=== PATIENT | female | born 1950 | race Caucasian/White ===

== ENCOUNTER 2021-03-23 10:50 | Outpatient (CLI) | payer OTHER, SELFPAY ==
[2021-03-23 11:54] LABS: Alanine Aminotransferase 15 U/L (4-35); Albumin Level 4.1 g/dL (3.5-5.1); Alkaline Phosphatase 61 U/L (38-126); Anion Gap 5 mmol/L (8-16); Aspartate Amino Transferase 23 U/L (14-36); Bilirubin,Total 0.4 mg/dL (0.2-1.3); Blood Urea Nitrogen 14 mg/dL (7-17); Carbon Dioxide 26 mmol/L (22-30); Chloride 105 mmol/L (98-107); Cholesterol 135 mg/dL (0-200); Estimated Glomerular Filt Rate > 60; Glucose 103 mg/dL (65-110); HDL Direct 42 mg/dL; Potassium 4.2 mmol/L (3.4-5.0); Sodium 136 mmol/L (137-145); Triglycerides 146 mg/dL (<150)
[2021-03-23 12:05] LABS: LDL Cholesterol Direct 60 mg/dL
== END 2021-03-23 10:51 | disposition home or self-care (01) ==
LOC: ANHLAB 10:52
PROVIDERS: PCP Family Medicine; Visit Provider Internal Medicine Cardiovascular Disease
DX: E78.5 Hyperlipidemia, unspecified (principal)
CPT/HCPCS: 36415; 80053; 80061

== ENCOUNTER 2021-10-26 12:58 | Outpatient (CLI) | payer OTHER, SELFPAY ==
--- NOTE | 2021-10-26 13:04 | ECHO_ITS ---
Patient Info Name: Yulissa Arellano Age: 71 years : 1950 Gender: Female Ht: 65 in Wt: 204 lbs BSA: 2.10 m2 HR: 72 bpm BP: 143 / 70 mmHg Technical Quality: Fair Exam Date: 10/26/2021 1:32 PM Exam Location[facility] Patient Status: Outpatient Admit Date: 10/26/2021 Staff Ordering Physician: Kaushik Ramirez DO Chief Ophthalmic Technician: Kaitlynn Chase RDCS Attending Provider: Kaushik Ramirez DO Referring Physician: James SALINAS; Exam Type: CA echo doppler color flow Study Info Indications Z95.3 - PRESENCE OF XEOGENIC HEART VALVE Complete two-dimensional, color flow and Doppler transthoracic echocardiogram is performed. Summary 1. Complete two-dimensional, color flow and Doppler transthoracic echocardiogram is performed. 2. Left ventricular chamber dimension is normal. 3. Left ventricular systolic function is normal, estimated at 65-70%. 4. There is mildly increased left ventricular wall thickness. 5. The left ventricular diastolic function is grade I diastolic dysfunction. 6. E/e' 12 is mildly elevated. 7. Global longitudinal strain is abnormal at -11.7%. 8. Right ventricular systolic function is reduced based on abnormal TAPSE 1.5 cm. 9. Linear artifact in right ventricle suggestive of catheter(s), pacemaker lead(s), or ICD lead(s). 10. Left atrial chamber dimension is mildly enlarged. 11. Linear artifact in the right atrium suggestive of catheter(s), pacemaker lead(s), or ICD lead(s). 12. The bioprosthetic aortic valve is not well visualized. 13. The mitral valve has mildly calcified annulus. 14. There is trace mitral valve regurgitation. 15. There is mild tricuspid valve regurgitation. 16. No pulmonary hypertension, estimated pulmonary arterial systolic pressure is 25 mmHg. 17. There is trace pulmonic regurgitation. Left Ventricle E/e' 12 is mildly elevated. Global longitudinal strain is abnormal at -11.7%. Left ventricular chamber dimension is normal. Left ventricular systolic function is normal, estimated at 65-70%. There is mildly increased left ventricular wall thickness. The left ventricular diastolic function is grade I diastolic dysfunction. Right Ventricle Right ventricular systolic function is reduced based on abnormal TAPSE 1.5 cm. Linear artifact in right ventricle suggestive of catheter(s), pacemaker lead(s), or ICD lead(s). Right ventricular chamber dimension is not well visualized. Left Atria Left atrial chamber dimension is mildly enlarged. Right Atria Linear artifact in the right atrium suggestive of catheter(s), pacemaker lead(s), or ICD lead(s). Right atrial chamber dimension is normal. Aortic Valve The bioprosthetic aortic valve is not well visualized. There is no bioprosthetic aortic valve stenosis. There is no regurgitation of the bioprosthetic aortic valve. Pulmonic Valve There is trace pulmonic regurgitation. Mitral Valve The mitral valve has mildly calcified annulus. There is no mitral valve stenosis. There is trace mitral valve regurgitation. Tricuspid Valve There is mild tricuspid valve regurgitation. No pulmonary hypertension, estimated pulmonary arterial systolic pressure is 25 mmHg. Pericardium/Pleural There is no pericardial effusion. Inferior Vena Cava Normal inferior vena cava with >50% collapse upon inspiration consistent with normal right atrial pressure, 5 mmHg. Aorta The aortic root size at the sinus of Valsalva is normal. Left Ventricular Outflow Tract
== END 2021-10-26 12:59 | disposition home or self-care (01) ==
LOC: ANHCARD 13:03
PROVIDERS: Visit Provider Internal Medicine Cardiovascular Disease
DX: Z95.3 Presence of xenogenic heart valve (principal); I36.1 Nonrheumatic tricuspid (valve) insufficiency
CPT/HCPCS: 93306

== ENCOUNTER 2022-08-17 01:23 | Day surgery (SDC) | payer MEDICARE, SELFPAY ==
[2022-08-04 14:04] VITALS: BMI 32.3
[2022-08-17 08:02] VITALS: BP 169/75; PULSE 70; RESP 20; TEMP 36.2; O2SAT 100
[2022-08-17] MEDS: LACTATED RINGERS 1,000 ML 150 ML IV CONT (08:12)
[2022-08-17] MEDS: GENTAMICIN 80MG/SOD CHL 50 ML 80 MG/50 ML BAG 100 MG IVPB (08:15)
[2022-08-17] MEDS: AMPICILLIN 2 GM/NS 100 ML 2 GM/100 ML BAG IVPB (08:32)
--- NOTE | 2022-08-17 08:41 | PM.HPGS ---
History of Present Illness History of Present Illness Consent: Risks, benefits, and alternatives have been discussed and questions answered. Patient agrees to proceed with procedure. Chief complaint: hx of colon polyps Narrative: Yulissa Arellano is a 72 year old female Presents for colonoscopy. Patient's current weight appetite and bowel movements are normal. Patient denies abdominal pain. She has had no bleeding. Family history noncontributory. Previous colonoscopy 2017 revealed adenomatous colon polyps. Patient presents today for screening colonoscopy. Review of Systems Review of Systems: Review of systems noncontributory. [facility] Past Medical History Medical History CAD (coronary artery disease) CKD (chronic kidney disease) stage 3, GFR 30-59 ml/min Dyslipidemia Essential hypertension Obesity GERDA (obstructive sleep apnea) Pacemaker PAD (peripheral artery disease) Surgical History Surgical History History of aortic valve replacement with bioprosthetic valve Family History Family History Mother Family history of cardiovascular disease Other Asthma Social History Social History Smoking status: Never smoker Alcohol intake: current Alcohol use details: occasionally Substance use: never Substance use type: does not use Living arrangements: alone Spiritual care concerns: No Meds Home Medications and Allergies Home Medications Medication Instructions Recorded Confirmed Type pyridoxine (vitamin B6) 50 mg 50 mg PO DAILY 07/03/19 08/04/22 History capsule rosuvastatin 10 mg tablet (Crestor) 10 mg PO DAILY 07/03/19 08/04/22 History cholecalciferol (vitamin D3) 50 1,000 unit PO DAILY 08/18/20 08/04/22 History mcg (2,000 unit) capsule citalopram 10 mg tablet 10 mg PO DAILY 08/18/20 08/04/22 History levothyroxine 137 mcg capsule 137 mcg PO DAILY 08/18/20 08/17/22 History amlodipine 10 mg tablet 10 mg PO DAILY 09/21/21 08/04/22 History aspirin 81 mg tablet,delayed 81 mg PO DAILY 09/21/21 08/04/22 History release (Adult Low Dose Aspirin) losartan 50 mg tablet See Rx Instructions .Route 11/10/21 08/04/22 Rx .COMPLEX #90 tabs carvedilol 12.5 mg tablet See Rx Instructions .Route 11/11/21 08/17/22 Rx .COMPLEX #180 tabs sodium,potassium,mag sulfates 17.5 See Rx Instructions PO .COMPLEX 07/28/22 08/04/22 Rx gram-3.13 gram-1.6 gram oral soln #354 mL (Suprep Bowel Prep Kit) Allergies Allergy/AdvReac Type Severity Reaction Status Date / Time lisinopril Allergy Unknown Cough Verified 08/17/22 08:01 Vital Signs Vital Signs - 24 hr 08/17/22 08:02 Temperature 97.2 F L Pulse Rate 70 Respiratory Rate 20 Blood Pressure 169/75 H Pulse Oximetry 100 Oxygen Delivery Room Air Exam Narrative: Physical exam reveals patient to be alert. Vital signs stable. HEENT exam is unremarkable. Patient is anicteric. Lungs are clear to auscultation and percussion. Heart is without murmur or extra sounds. Abdomen bowel sounds are present soft nontender with no organomegaly. Digital external rectal exam is normal. Assessment and Plan Assessment and plan (1) History of colon polyps: Code(s): Z86.010 - Personal history of colonic polyps Status: Acute Assessment and Plan: Patient has a history of colon polyps. Plan for surveillance colonoscopy at 5 year intervals. Further recommendations may be given after endoscopy.
--- NOTE | 2022-08-17 08:42 | WPDANESEPPF ---
Anes - Initial Pre Proc Eval Procedure: Operation Date: 08/17/22 09:00 Proposed Procedures p Screening Colonoscopy - Octavio Salvador MD Date/Time: 08/17/22 08:42 Surgeon: Octavio Salvador MD Pre Op Diagnosis: hx of colon polyps Patient Data Age: 72 Gender: F Height: 1.65 m Weight: 88 kg Last Vital Signs Temp 97.2 F L 08/17/22 08:02 Pulse 70 08/17/22 08:02 Resp 20 08/17/22 08:02 BP 169/75 H 08/17/22 08:02 Pulse Ox 100 08/17/22 08:02 O2 Del Method Room Air 08/17/22 08:02 Allergies Allergy/AdvReac Type Severity Reaction Status Date / Time lisinopril Allergy Unknown Cough Verified 08/17/22 08:01 Home Medications Medication Instructions Recorded Confirmed Type pyridoxine (vitamin B6) 50 mg 50 mg PO DAILY 07/03/19 08/04/22 History capsule rosuvastatin 10 mg tablet (Crestor) 10 mg PO DAILY 07/03/19 08/04/22 History cholecalciferol (vitamin D3) 50 1,000 unit PO DAILY 08/18/20 08/04/22 History mcg (2,000 unit) capsule citalopram 10 mg tablet 10 mg PO DAILY 08/18/20 08/04/22 History levothyroxine 137 mcg capsule 137 mcg PO DAILY 08/18/20 08/17/22 History amlodipine 10 mg tablet 10 mg PO DAILY 09/21/21 08/04/22 History aspirin 81 mg tablet,delayed 81 mg PO DAILY 09/21/21 08/04/22 History release (Adult Low Dose Aspirin) losartan 50 mg tablet See Rx Instructions .Route 11/10/21 08/04/22 Rx .COMPLEX #90 tabs carvedilol 12.5 mg tablet See Rx Instructions .Route 11/11/21 08/17/22 Rx .COMPLEX #180 tabs sodium,potassium,mag sulfates 17.5 See Rx Instructions PO .COMPLEX 07/28/22 08/04/22 Rx gram-3.13 gram-1.6 gram oral soln #354 mL (Suprep Bowel Prep Kit) Patient hx anesthesia problems: none Family hx anesthesia problems: none Results Review: All pre-operative results and documents have been reviewed as part of the pre-operative evaluation. [facility] Past Medical History Medical History CAD (coronary artery disease) CKD (chronic kidney disease) stage 3, GFR 30-59 ml/min Dyslipidemia Essential hypertension Obesity GERDA (obstructive sleep apnea) Pacemaker PAD (peripheral artery disease) Surgical History Surgical History History of aortic valve replacement with bioprosthetic valve Family History Family History Mother Family history of cardiovascular disease Other Asthma Social History Social History Smoking status: Never smoker Alcohol intake: current Alcohol use details: occasionally Substance use: never Substance use type: does not use Living arrangements: alone Spiritual care concerns: No Anes - Eval Final PreProcedure Day of Procedure 08/17/22 08:42 Patient weight: obese Heart: regular rate and rhythm Lungs: clear to auscultation Airway: Mallampati scale class III Neurological: alert and oriented Last oral intake: >/= 8 hours ASA classification: III Emergent: no Anesthetic plan: proceed Anesthesia type and monitoring: general GIVS and standard monitoring Results Review: All pre-operative results and documents have been reviewed as part of the pre-operative evaluation. Informed Consent: The patient's anesthetic plan and its attendant risks and benefits were discussed with the patient/family/POA. Questions were solicited and answers provided to the satisfaction of the patient/family/POA.
[2022-08-17 09:08] VITALS: BP 100/48; PULSE 60; RESP 22; O2SAT 100
[2022-08-17 09:18] VITALS: BP 97/52; PULSE 60; RESP 22; O2SAT 96
[2022-08-17 09:28] VITALS: BP 125/70; PULSE 60; RESP 23; O2SAT 96
== END 2022-08-17 09:40 | disposition home or self-care (01) ==
PROVIDERS: Visit Provider Internal Medicine Gastroenterology
PROC: 0DJD8ZZ Inspection of Lower Intestinal Tract, Via Natural or Artificial Opening Endoscopic (ICD-10-PCS; CPT 45378; principal; 2022-08-17 09:00)
DX: Z12.11 Encounter for screening for malignant neoplasm of colon (principal); D12.5 Benign neoplasm of sigmoid colon; K57.30 Diverticulosis of large intestine without perforation or abscess without bleeding; K64.8 Other hemorrhoids; I12.9 Hypertensive chronic kidney disease with stage 1 through stage 4 chronic kidney disease, or unspecified chronic kidney disease; N18.30 Chronic kidney disease, stage 3 unspecified; G47.33 Obstructive sleep apnea (adult) (pediatric); I25.10 Atherosclerotic heart disease of native coronary artery without angina pectoris; I73.9 Peripheral vascular disease, unspecified; E78.5 Hyperlipidemia, unspecified; Z95.0 Presence of cardiac pacemaker; Z79.82 Long term (current) use of aspirin; E66.9 Obesity, unspecified; Z68.32 Body mass index [BMI] 32.0-32.9, adult
CPT/HCPCS: 45385; 88305; J0290; J1580; J2704; J7120

== ENCOUNTER 2022-09-20 10:08 | Outpatient (CLI) | payer MEDICARE, SELFPAY ==
[2022-09-20 11:04] LABS: Alanine Aminotransferase 19 U/L (6-35); Albumin Level 3.9 g/dL (3.5-5.1); Alkaline Phosphatase 71 U/L (38-126); Anion Gap 7 mmol/L (8-16); Aspartate Amino Transferase 23 U/L (14-36); Bilirubin,Total 0.4 mg/dL (0.2-1.3); Blood Urea Nitrogen 23 mg/dL (7-17); Carbon Dioxide 26 mmol/L (22-30); Chloride 107 mmol/L (98-107); Cholesterol 134 mg/dL (0-200); Estimated Glomerular Filt Rate > 60; Glucose 107 mg/dL (65-110); HDL Direct 29 mg/dL; Potassium 3.9 mmol/L (3.4-5.0); Sodium 140 mmol/L (137-145); Triglycerides 213 mg/dL (<150)
[2022-09-20 11:14] LABS: LDL Cholesterol Direct 60 mg/dL
[2022-09-20 11:51] LABS: Thyroid Stimulating Hormone Reflex < 0.015 uIU/mL (0.465-4.68)
[2022-09-20 21:46] LABS: Free T4 Free Thyroxine Reflex 3.02 ng/dL (0.78-2.19)
== END 2022-09-20 10:09 | disposition home or self-care (01) ==
PROVIDERS: Visit Provider Internal Medicine Cardiovascular Disease
DX: E78.5 Hyperlipidemia, unspecified (principal)
CPT/HCPCS: 36415; 80053; 80061; 84439; 84443

== ENCOUNTER 2022-10-22 08:29 | Outpatient (CLI) | payer MEDICARE, SELFPAY ==
--- NOTE | ~2022-10-22 | NM_ITS ---
EXAMINATION: NM aria stress w perfusion DATE: 10/22/2022 10:47 INDICATION: Dyspnea on exertion. TECHNIQUE: Rest images were obtained following intravenous administration of 10.6 mCi Tc99m tetrofosm in (Myoview). The patient was infused intravenously with Lexiscan (regadenoson). Then, 34.11 mCi Tc99 m tetrofosmin (Myoview) was administered intravenously, and stress images were obtained. Data was rec onstructed into short axis and horizontal and vertical long axis SPECT images. Gated SPECT images wer e also obtained. COMPARISON: Myocardial perfusion imaging 11/26/2015 FINDINGS: There is a large, mild, reversible perfusion defect involving mid to basal inferior and inf erolateral ro and mid anterolateral wall, consistent with ischemia. There is no segmental wall mo tion abnormality. Left ventricular ejection fraction measures 69%. IMPRESSION: 1. Large area of mild ischemia involving mid to basal inferior and inferolateral ro and mid violeta lateral wall. 2. Normal left ventricular ejection fraction measuring 69%. Reviewed, dictated and finalized at location A. IMPRESSION: 1. Large area of mild ischemia involving mid to basal inferior and inferolatera l ro and mid anterolateral wall. 2. Normal left ventricular ejection fraction measuring 69%.
--- NOTE | 2022-10-22 09:29 | EST_ITS ---
Patient Info Name: Yulissa Arellano Age: 72 years : 1950 Gender: Female Ht: 65 in Wt: 191 lbs BSA: 2.02 m2 Exam Date: 10/22/2022 9:42 AM Exam Location: [facility] Stress Patient Status: Outpatient Admit Date: 10/22/2022 Staff Ordering Physician: Kaushik Ramirez DO Attending Provider: Kaushik Ramirez DO Exercise Technologist: Kaylee Erickson CT Exercise Physician: Kaushik Ramirez DO Exam Type: CA stress aria w NM Study Info Indications R06.09 - Other forms of dyspnea A regadenoson stress test was performed. Summary 1. 1. Negative lexiscan stress test for ischemic ST changes by ECG criteria. 2. 2. Baseline hypertension. 3. 3. Nuclear scan to follow and will be reported separately. Please correlate with it. 4. 4. Patient informed of the above results. Protocol: Lexiscan Stress ECG Details Stage: REST Duration (min): 0 min : 59 sec HR (bpm): 60 SBP (mmHg): 148 DBP (mmHg): 77 Stage: REST Duration (min): 6 min : 10 sec HR (bpm): 60 SBP (mmHg): 148 DBP (mmHg): 77 Stage: STAGE 1 Duration (min): 0 min : 59 sec HR (bpm): 81 SBP (mmHg): 139 DBP (mmHg): 58 Stage: RECOVERY Duration (min): 1 min : 0 sec HR (bpm): 77 SBP (mmHg): 139 DBP (mmHg): 58 Stage: RECOVERY Duration (min): 2 min : 0 sec HR (bpm): 76 SBP (mmHg): 139 DBP (mmHg): 58 Stage: RECOVERY Duration (min): 3 min : 0 sec HR (bpm): 73 SBP (mmHg): 139 DBP (mmHg): 58 Stage: RECOVERY Duration (min): 3 min : 21 sec HR (bpm): 74 SBP (mmHg): 134 DBP (mmHg): 56 Rest HR: 60 bpm Peak HR: 81 bpm Rest Sys BP: 148 mmHg Peak Sys BP: 139 mmHg Max Pred HR: 146 bpm % Max Pred HR: 55 % Target HR: 124 bpm Max RPP: 11,259 bpm*mmHg Termination Reason: Completed protocol Cardiac Symptoms: Shortness of breath Total Time: 1 min : 0 sec Rest Oliva BP: 77 mmHg Peak Oliva BP: 58 mmHg Total Dose: 0.4 mg Resting ECG Sinus rhythm. Stress ECG No ST changes. Arrhythmias None. Report Signatures
== END 2022-10-22 08:30 | disposition home or self-care (01) ==
PROVIDERS: Visit Provider Internal Medicine Cardiovascular Disease
DX: R06.09 Other forms of dyspnea (principal); Z01.810 Encounter for preprocedural cardiovascular examination
CPT/HCPCS: 78452; 93017; A9502; J2785

== ENCOUNTER 2023-02-03 11:09 | Outpatient (CLI) | payer OTHER, SELFPAY ==
[2023-02-03 11:56] LABS: LDL Cholesterol Direct 78 mg/dL
[2023-02-03 12:35] LABS: Alanine Aminotransferase 15 U/L (6-35); Alkaline Phosphatase 76 U/L (38-126); Anion Gap 7 mmol/L (8-16); Aspartate Amino Transferase 24 U/L (14-36); Bilirubin,Total 0.5 mg/dL (0.2-1.3); Blood Urea Nitrogen 22 mg/dL (7-17); Calcium 8.2 mg/dL (8.4-10.2); Carbon Dioxide 24 mmol/L (22-30); Chloride 109 mmol/L (98-107); Cholesterol 145 mg/dL (0-200); Estimated Glomerular Filt Rate > 60; Glucose 104 mg/dL (65-110); HDL Direct 40 mg/dL; Sodium 140 mmol/L (137-145); Triglycerides 135 mg/dL (<150)
== END 2023-02-03 11:10 | disposition home or self-care (01) ==
PROVIDERS: PCP Family Medicine; Visit Provider Internal Medicine Cardiovascular Disease
DX: E78.5 Hyperlipidemia, unspecified (principal)
CPT/HCPCS: 36415; 80053; 80061

== ENCOUNTER 2024-12-10 14:32 | Outpatient (CLI) | payer MEDICARE, SELFPAY ==
--- OUTSIDE RECORDS SUMMARY | 2024-12-10 14:45 | XMS_ITS | Clinical Summary ---
Author Organization [facility] Address [address] [place] [address] Care Team Providers Care Emt Name Role Phone Lucas Perez MD Unavailable [phone] Kaushik Ramirez DO Unavailable [phone] Kaushik Ramirez DO Unavailable [phone] Aki Warner MD Primary Care Provider Allergies No known active allergies Medications cholecalciferol (VITAMIN D-3) 1,000 unit Take 1 tablet/capsule (1,000 Units total) by mouth daily Active carvediloL (COREG) 12.5 mg tablet 0.5 tablets (6.25 mg total) 0 Active aspirin 81 mg enteric coated tabletIndication s:Essential hypertension,Hyp ercholesterolemi a,Coronary artery disease of [place] artery of [place] heart with stable angina pectoris Take 1 tablet (81 mg total) by mouth daily 90 tablet 3 1 Active clopidogreL (PLAVIX) 75 mg tablet Take 1 tablet (75 mg total) by mouth daily 4 Active cilostazoL (PLETAL) 50 mg tablet Take 2 tablets (100 mg total) by mouth 2 (two) times a day Active rosuvastatin (CRESTOR) 10 mg tabletIndication s:Mixed dyslipidemia Take 1 tablet (10 mg total) by mouth daily 90 tablet 3 4 Active Additional Information Patient not taking.Reported on 11/07/2024 cyanocobalamin (Vitamin B-12) 1,000 mcg tabletIndication s:Vitamin B12 Deficiency Take 1 tablet (1,000 mcg total) by mouth daily 90 tablet 3 4 Active amLODIPine (NORVASC) 10 mg tabletIndication s:Primary hypertension Take 1 tablet (10 mg total) by mouth daily 90 tablet 3 4 04/04/20 25 Active losartan (COZAAR) 100 mg tabletIndication s:Primary hypertension TAKE 1 TABLET BY MOUTH EVERY DAY 90 tablet 1 5 Active Additional Information Patient not taking.Reported on 11/07/2024 levothyroxine (SYNTHROID) 112 mcg tablet TAKE 1 TABLET BY MOUTH IN THE ENVIRONMENTAL SERVICES ASSISTANT BEFORE BREAKFAST 90 tablet 1 5 Active citalopram (CeleXA) 20 mg tabletIndication s: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 A nerve conduction study of the left upper extremity was performed. In this extremity the left median and ulnar motor and sensory nerves and radial sensory nerves were examined. This has followed by EMG examination of the left upper extremity using a concentric needle. The following muscles were sampled left 1st dorsal interosseous abductor pollicis brevis pronator teres flexor digitorum profundus biceps triceps deltoid middle lower cervical paraspinal muscles. Abnormalities on nerve conduction velocity test included the following 1. There was a delay in the left median distal motor latencies at 5.3 milliseconds, a delay in the left median snap latencies at 4.1 milliseconds, a delay in the left median motor nerve conduction velocity at 48 m/sec and a delay in the left median F-wave latencies at 34 m/sec. The left median compound muscle action potential amplitudes were decreased at 1.8 mV at the wrist and 1.9 mV at the elbow. 2. The left ulnar motor nerve conduction velocity across the elbow was decreased slightly at 48 m/sec the left ulnar snap latencies was delayed at 3.9 millisecond. EMG examination showed no evidence of any active or chronic denervation. Polyphasic potentials were seen in the right abductor pollicis brevis muscle. Impression: 1. Abnormal EMG nerve conduction velocity because of 1. 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 carpal tunnel syndrome with chronic neuropathic changes in the left abductor pollicis brevis muscle. 2. Left ulnar neuropathy across the elbow and left ulnar neuropathy at the wrist. No evidence for cervical radiculopathy. Clinical correlation is recommended. Assessment & Plan (09/25/2024 11:50 AM CDT): Chronic left carpal tunnel syndrome with tingling and pain in all fingers, extending up the arm, worse at night. Positive Tinel's and Phalen's tests on the left wrist. Previous right carpal tunnel repair. Unable to see an orthopedic doctor due to availability issues. Nerve conduction study needed to confirm diagnosis and assess severity. Referral to a hand orthopedic surgeon planned for further evaluation and management. - Order nerve conduction study for left arm at [facility] - Refer to hand orthopedic surgeon at [facility] - Advise wearing a wrist brace at night Low vitamin B12 level 01/06/2024 Assessment & Plan (04/02/2024 3:11 PM LATHE SANDER): - Chronic condition, worse - Noted on 01/09 with level 353 - Started B12 500 mcg daily, script sent in on last visit, question compliance - recheck labs, order placed with result as shown below Lab Results Component Value Date VITB12 332 04/02/2024 Lab Results Component Value Date FOLATE 6.5 01/05/2024 Assessment & Plan (01/06/2024 4:49 AM CDT): - new diagnosis - Noted on 01/09 - Start B12 500 mcg daily, script sent in Lab Results Component Value Date VITB12 353 01/05/2024 Lab Results Component Value Date FOLATE 6.5 01/05/2024 TMJ arthralgia 01/05/2024 Overview (09/25/2024): With referred otalgia Assessment & Plan (09/25/2024 10:58 AM CDT): - chronci condition, not at goal.recurring - causing referred left ear pain, referred otalgia - reports even in her 30s she had an injection - recommend establishing with an oral surgeon, referral placed in past but still trying to fine a new oral surgeon Assessment & Plan (04/03/2024 8:56 AM LATHE SANDER): - chronci condition, not at goal - causing referred left ear pain, referred otalgia - reports even in her 30s she had an injection - recommend establishing with an oral surgeon, referral placed in past but still trying to fine a new oral surgeon Assessment & Plan (01/05/2024 9:54 AM CDT): - chronci condition, worse - causing referred left ear pain - reports even in her 30s she had an injection - recommend establishing with an oral surgeon, referral placed Stage 3a chronic kidney disease 06/02/2023 Assessment & Plan (04/03/2024 9:00 AM LATHE SANDER): - chronic condition, worse --> in setting of poorly controlled hypertension - noted on lab work - educated patient about it - avoid NSAIDs, and renally dose medications - recommend good control of hypertension - obtained Renal US - had ordered Urine ACR and protein creatinine, renal function panel, on prior visit that is yet to be done, reminder provided - see plan under hypertension US Renal Complete 02/08 IMPRESSION: 1. Normal renal size with no hydronephrosis. 2. Borderline increased echogenicity right kidney which could be seen with medical renal disease. Lab Results Component Value Date CREATININE 1.30 (H) 04/02/2024 CREATININE 1.19 (H) 01/05/2024 CREATININE 1.04 02/22/2023 CREATININE 0.78 09/09/2021 CREATININE 0.74 05/26/2021 Assessment & Plan (01/06/2024 6:45 AM CDT): - chronic condition, worse - noted on lab work - educated patient about it - avoid NSAIDs, and renally dose medications - recommend good control of hypertension - obtain Renal US, Urine ACR and protein creatinine, renal function panel, orders placed Lab Results Component Value Date CREATININE 1.19 (H) 01/05/2024 CREATININE 1.04 02/22/2023 CREATININE 0.78 09/09/2021 CREATININE 0.74 05/26/2021 CREATININE 1.13 (H) 04/14/2021 Assessment & Plan (06/02/2023 12:25 PM LATHE SANDER): - chronic condition - noted on lab work - educated patient about it - avoid NSAIDs, and renally dose medications - recommend good control of hypertension - will continue to monitor Preventative health care 02/24/2023 Assessment & Plan (04/02/2024 1:04 PM LATHE SANDER): - New or chronic worsening conditions: Low vitamin B12, Hypertension - Mental health: no significant psychiatric/mental health conditions affecting her day to day functioning - Dental health: Up to date with regular dental care and cleaning. Discussed importance of regular tooth brushing, flossing, and dental visits. - Nutrition: Stressed importance of moderation in sodium/caffeine intake, saturated fat and cholesterol, caloric balance, sufficient intake of fresh fruits, vegetables - Exercise: Stressed the importance of regular exercise - Immunizations: Age and sex appropriate immunizations reviewed and offered - Cervical Cancer screening: n/a - Breast Cancer screening: up to date - Colon cancer screening: up to date, getting colonoscopy records in care everywhere from 08/2022 - Lung cancer screening: n/a - Bone desnity/osteoporosis screening:up to date - control: n/a Assessment & Plan (02/24/2023 11:25 AM LATHE SANDER): - New or chronic worsening conditions: no significant acute issues on this visit - Mental health: no significant psychiatric/mental health conditions affecting her day to day functioning - Dental health: Up to date with regular dental care and cleaning. Discussed importance of regular tooth brushing, flossing, and dental visits. - Nutrition: Stressed importance of moderation in sodium/caffeine intake, saturated fat and cholesterol, caloric balance, sufficient intake of fresh fruits, vegetables - Exercise: Stressed the importance of regular exercise - Immunizations: Age and sex appropriate immunizations reviewed and offered - Cervical Cancer screening: n/a - Breast Cancer screening: up to date - Colon cancer screening: up to date, getting colonoscopy records in care everywhere from 08/2022 - Lung cancer screening: n/a - Bone desnity/osteoporosis screening:up to date - control: n/a Chronic pain of both shoulders 09/09/2021 Assessment & Plan (01/06/2022 9:27 AM CDT): Chronic and stable. Plain films show moderate/severe degenerative changes - Tylenol 500-1000mg q6h. Counseled on risk of liver and/or kidney injury with prolonged use of medication. - Ice/Heat to affected area prn - Will refer to Ortho as needed if symptoms worsens per patient request. Has received steroid injections in past that helped - F/u prn Assessment & Plan (10/07/2021 11:06 AM CDT): Chronic.Dx:Plain films show moderate/severe degenerative changes - Tylenol 500-1000mg q6h or Ibuprofen 800mg q8h prn pain. Counseled on risk of liver and/or kidney injury with prolonged use of medication. - Ice/Heat to affected area prn - Will refer to Ortho as she has received steroid injections in past - RTC 3 months for re-eval prn Assessment & Plan (09/09/2021 4:16 PM CDT): Chronic. With radiation. No red flag symptoms. DDx:Cervical radiculopathy vs Primary OA GHjoint - Tylenol 500-1000mg q6h or Ibuprofen 800mg q8h prn pain. Counseled on risk of liver and/or kidney injury with prolonged use of medication. - Ice/Heat to affected area prn - Plain films ordered to eval - Will refer to Ortho as she has received steroid injections in past - RTC 4-6 weeks for re-evaluation - Consider PT referral DDD (degenerative disc disease), lumbar 02/06/20 Assessment & Plan (02/24/2023 11:30 AM LATHE SANDER): - reports hx of neck surgery and back surgery at [facility] - will review records - used to follow with pain management - not on daily pain medications - no major neck pain and only gets back pain with prolonged walking Degenerative lumbar spinal stenosis 02/05/2021 Assessment & Plan (03/17/2021 2:40 PM LATHE SANDER): Encouraged patient to keep scheduled appointment with pain management and to follow through with both the neurosurgeon in pain management plans To help her back pain. Lumbar radiculopathy 12/30/2020 Degenerative cervical spinal stenosis 11/27/2020 Overview (12/06/2023): - reports hx of neck surgery and back surgery - will review records CT Cervical spine WO contrast 12/09 ALIGNMENT: Alignment and curvature unchanged. VERTEBRAE: No acute fracture. Vertebral body heights unchanged. Spondylosis. DISCS: Of the non fused intervertebral disc heights, multilevel variable loss of intervertebral disc height of the visualized cervicothoracic spine. HARDWARE: ACDF C4-C6: Intact hardware in stable alignment without evidence of loosening. INDIVIDUAL DISC LEVELS: No significant osseous spinal canal stenosis. Multilevel variable osseous neural foraminal stenosis. IMPRESSION: No acute fracture or subluxation with spondylosis and degenerative disc disease of the postsurgical cervical spine. Assessment & Plan (11/14/2023 3:04 PM CDT): - chronic condition - reports hx of neck surgery x2 and back surgery at [facility] - s/p anterior cervical discectomy and fusion hardware C4-C6 with intervertebral spacers - used to follow with pain management - not on daily pain medications - no major neck pain and only gets back pain with prolonged walking - prior imaging results as shown below CT CERVICAL SPINE WO CONTRAST 2020 FINDINGS: There is anterior cervical discectomy and fusion hardware C4-C6 with intervertebral spacers. There is fusion of the C4 and C5 vertebral bodies and of the C6 and C7 vertebral bodies, although no fusion of the C5 and C6 vertebral bodies. There is fusion of the C2 and C3 left facet joints, and partial fusion of the right C2-C3 and bilateral C3-C4 facet joints. There may be partial fusion of the C7 and T1 facet joints. There is straightening of the normal cervical lordosis. Evaluation of the individual disc levels are as follows: C2-C3: Facet joint arthropathy. No significant osseous central spinal canal or osseous neural foraminal stenosis. C3-C4: Uncovertebral joint hypertrophy and facet joint hypertrophy with mild osseous neural foraminal stenoses. C4-C5: Postsurgical changes. Uncovertebral and facet joint hypertrophy with mild left osseous neural foraminal stenosis. C5-C6: Postsurgical changes. Uncovertebral and facet joint hypertrophy with moderate osseous neural foraminal stenoses. Posterior disc osteophyte complex eccentrically greater toward the left mildly narrows the osseous central canal. C6-C7: Uncovertebral and facet joint hypertrophy without significant osseous central spinal canal or osseous neural foraminal stenosis. C7-T1: Facet joint hypertrophy. No significant osseous central spinal canal or osseous neural foraminal stenosis. There are carotid artery calcifications. Partially visualized are left chest wall cardiac device leads. IMPRESSION: Postsurgical changes as above. Multi level degenerative changes, greatest at C5-C6. Assessment & Plan (02/24/2023 11:30 AM LATHE SANDER): - reports hx of neck surgery and back surgery at [facility] - will review records - used to follow with pain management - not on daily pain medications - no major neck pain and only gets back pain with prolonged walking Sacroiliitis 11/27/2020 H/O gastric ulcer 10/24/2019 Assessment & Plan (09/24/2020 12:29 PM CDT): Asymtpomatic. No melena, no BRBPR. Calculus of gallbladder with out cholecystitis without obstruction 05/08/2019 Overview (05/08/2019): Seen on CT ABD 07/2018 Assessment & Plan (09/24/2020 12:31 PM CDT): Asx. Assessment & Plan (06/12/2019 11:05 AM LATHE SANDER): The patient, since she states having had only 1 attack, would like to wait on pursuing surgery. She states that if these attacks would return then she would entertain having her gallbladder removed. We have gone over risks of waiting with regards to the stones and causing obstruction. To call us back if anything changes. We have encouraged a low-fat diet to try and limit any further attack from happening. Personal history of colonic polyps 05/08/2019 Assessment & Plan (06/24/2023 4:14 AM LATHE SANDER): - last Colonoscopy in 2019, told to repeat in 3 years - past due and will need to be scheduled for colonoscopy Colonosocpy 05/2019 Impression: - One 14 mm polyp at the hepatic flexure, removed with a hot snare. Resected and retrieved. Clips (MR conditional) were placed. - One 8 mm polyp in the transverse colon, removed with a jumbo cold forceps. Resected and retrieved. - Three 5 to 8 mm polyps in the sigmoid colon, removed with a cold snare. Resected and retrieved. - Three 5 to 15 mm polyps in the rectum, removed with a hot snare. Resected and retrieved. Clip (MR conditional) was placed. - Internal hemorrhoids. Recommendation: - Await pathology results. - Repeat colonoscopy in 3 years for screening purposes. - Resume Plavix (clopidogrel) at prior dose in 4 days. Class 1 obesity due to exces s calories with serious comorbidity and body mass index (BMI) of 30.0 to 30.9 in adult 01/23/2019 Assessment & Plan (04/02/2024 9:53 AM LATHE SANDER): Wt Readings from Last 3 Encounters: 04/02/24 82.6 kg (182 lb) 01/05/24 82.3 kg (181 lb 6.4 oz) 11/22/23 84.6 kg (186 lb 6.4 oz) Body mass index is 30.29 kg/m . - chronic condition, not at goal - BMI Follow-up includes: nutrition counseling, exercise counseling and education provided - co-morbidities - CAD, hyperlipidemia Assessment & Plan (06/23/2023 2:33 PM LATHE SANDER): Wt Readings from Last 3 Encounters: 06/23/23 87 kg (191 lb 12.8 oz) 06/02/23 85.6 kg (188 lb 12.8 oz) 02/22/23 87.1 kg (192 lb) Body mass index is 31.92 kg/m . - chronic condition, not at goal - BMI Follow-up includes: nutrition counseling, exercise counseling and education provided - co-morbidities - CAD, hyperlipidemia Assessment & Plan (02/22/2023 1:35 PM LATHE SANDER): Wt Readings from Last 3 Encounters: 02/22/23 87.1 kg (192 lb) 01/06/22 95 kg (209 lb 6.4 oz) 10/07/21 92.7 kg (204 lb 6.4 oz) Body mass index is 31.95 kg/m . - chronic condition, not at goal - BMI Follow-up includes: nutrition counseling, exercise counseling and education provided - co-morbidities - CAD, hyperlipidemia Assessment & Plan (05/27/2021 9:27 PM LATHE SANDER): Weight reduction, daily exercise and dietary modifications recommended. Assessment & Plan (03/17/2021 2:40 PM LATHE SANDER): Weight reduction, daily exercise and dietary modifications recommended. Assessment & Plan (09/24/2020 12:30 PM CDT): Weight reduction, daily exercise and dietary modifications recommended. Patient walks daily, continue. Assessment & Plan (03/03/2020 1:39 PM LATHE SANDER): - BMI Follow-up includes: nutrition counseling, exercise counseling and education provided - eating less, has had some weight loss about 15lbs from last visit, intentional weight loss Assessment & Plan (10/24/2019 10:17 AM CDT): Weight reduction, daily exercise and dietary modifications recommended. Assessment & Plan (01/23/2019 2:26 PM CDT): Worsening. Encouraged patient to decrease weight, increase daily exercise, and modify diet. Allergic rhinitis 01/23/2019 Assessment & Plan (01/05/2024 9:51 AM CDT): - chronic condition, ongoing symptoms - recommend use of nasal steroid sprays Assessment & Plan (09/24/2020 12:33 PM CDT): Takes OTC anithistamines to control symptoms. Doing well. H/O carpal tunnel repair 01/23/2019 Assessment & Plan (09/24/2020 12:31 PM CDT): S/p repair on right. Asx. History of colonic polyps 01/23/2019 Overview (02/24/2023): Requesting Colonoscopy records from [facility] - also in care everywhere but cannot access full record of colonoscopy from 08/2022, then update in care gaps Assessment & Plan (02/24/2023 11:26 AM LATHE SANDER): Requesting Colonoscopy records from [facility] - also in care everywhere but cannot access full record of colonoscopy from 08/2022, then update in care gaps Intervertebral cervical disc disorder with myelopathy, cervical region 01/23/2019 Assessment & Plan (09/24/2020 12:22 PM CDT): Has been using acetaminophen. Patient would like to see a pain specialist. Memory deficits 01/23/2019 Assessment & Plan (09/24/2020 12:21 PM CDT): Denies this dx. She states that she only has a problem with remembering names. Assessment & Plan (01/23/2019 2:25 PM CDT): Consider performing MMSE at next visit. Recurrent major depressive disorder in partial r emission 01/23/2019 Assessment & Plan (04/02/2024 1:02 PM LATHE SANDER): - chronic, stable - currently on Citalopram 20 mg daily - states she needs to be on this medication to do well - continue current management Lab Results Component Value Date TSH 12.78 (H) 04/02/2024 Assessment & Plan (06/23/2023 2:36 PM LATHE SANDER): - chronic, stable - currently on Citalopram 20 mg daily - states she needs to be on this medication to do well - continue current management Lab Results Component Value Date TSH 0.28 (L) 02/22/2023 Assessment & Plan (02/22/2023 1:39 PM LATHE SANDER): - chronic, stable - currently on Citalopram 20 mg daily - states she needs to be on this medication to do well - continue current management Assessment & Plan (01/06/2022 9:25 AM CDT): Chronic and stable. PHQ 2 score 1. -continue Celexa 20 mg daily medication refilled today -continue to monitor mood -follow-up 6 months or sooner if needed Assessment & Plan (09/24/2020 12:19 PM CDT): Reports that it hasn't been helping as well, would like an increase. Increased citalopram 10 mg every day to 20 mg every day. Assessment & Plan (03/03/2020 1:33 PM LATHE SANDER): - currently on Celexa 10mg once daily - woks really well for her, stable, continue current medication Assessment & Plan (10/24/2019 10:16 AM CDT): Non-compliant with current medications, encouraged compliance. Vitamin D deficiency 01/23/2019 Assessment & Plan (02/24/2023 11:28 AM LATHE SANDER): - chronic, controlled - most recent Vitamin D level is as shown below - currently on Vitamin D supplementation 5k D3 daily - continue current management Lab Results Component Value Date 25HYDROVITD 34 02/22/2023 25HYDROVITD 33 09/09/2021 25HYDROVITD 37 09/25/2020 25HYDROVITD 47 10/24/2019 25HYDROVITD 41 01/23/2019 Assessment & Plan (09/09/2021 4:17 PM CDT): Chronic and stable. Continue current medication. Will obtain lab and adjust meds prn Assessment & Plan (09/24/2020 12:18 PM CDT): Patient discontinued the vit d on her own. Agreed to re-start. Lab ordered. Assessment & Plan (03/05/2020 8:08 AM LATHE SANDER): - she is currently not taking vitamin D supplementation - she says she did not see a big difference - discussed importance of vitamin D supplementation - last vitamin D level was in normal range on 10/2019 Assessment & Plan (01/23/2019 2:26 PM CDT): Labs ordered. Hx of cardiac pacemaker 10/12/2017 Overview (10/12/2017): [employer] Dual Pacemaker. Dx; Sinus Node Dysfunction, Afib. DOI 10/11/[address] Napier. Jassi remote monitoring Q3 mo, office pacer checks Q1 yr. Assessment & Plan (02/22/2023 1:41 PM LATHE SANDER): - chronic - [employer] Dual Pacemaker. Dx; Sinus Node Dysfunction, Afib. DOI 10/11/[address] Napier - follows and managed by her chairman & chief executive officer Assessment & Plan (09/24/2020 12:27 PM CDT): Doing well, asymptomatic. Followed by cardiology. History of heart valve replacement 09/13/2017 Overview (09/24/2020): Assessment & Plan (09/09/2021 4:18 PM CDT): Chronic and stable. Continue current medication. Managed by Cards. Patient advised to discuss with cards if Aspirin can be discontinued given terminal press operator use of Plavix. Coronary artery disease invo lving coronary bypass graft of [place] heart without angina pectoris 09/08/2017 Overview (05/30/2024): S/p Coronary artery bypass grafting x3, placement of left DOREEN to the LAD, radial artery to the obtuse marginal Follows with cardiology at [facility] (scanned 05/23/2024 visit) Assessment & Plan (04/02/2024 1:01 PM LATHE SANDER): - chronic, stable - S/p Coronary artery bypass grafting x3, placement of left DOREEN to the LAD, radial artery to the obtuse marginal - recently had 2 stents placed around - follows with Cardiology - currently on Aspirin 81 mg daily, Rosuvastatin 10 mg daily (restarted on last visit), Carvedilol 6.25 mg BID and Clopidogrel 75 mg daily - continue current management Lab Results Component Value Date LDLCALC 109 04/02/2024 Assessment & Plan (02/24/2023 11:22 AM LATHE SANDER): - chronic, stable - S/p Coronary artery bypass grafting x3, placement of left DOREEN to the LAD, radial artery to the obtuse marginal - recently had 2 stents placed around -11/2022 - follows with Cardiology - currently on Aspirin 81 mg daily, Rosuvastatin 10 mg daily, Carvedilol 6.25 mg BID - Brilinta 90 mg BID which was just added due to recent stent placed - continue current management - check labs, order placed Assessment & Plan (05/27/2021 9:27 PM LATHE SANDER): Asymptomatic. Stable. Continue current prescription medications. Assessment & Plan (09/24/2020 12:30 PM CDT): On daily statin, asa and plavix. Asx. Assessment & Plan (05/27/2020 2:14 PM LATHE SANDER): - following with cardiology - S/p Coronary artery bypass grafting x3, placement of left DOREEN to the LAD, radial artery to the obtuse marginal - on aspirin 81mg daily, Meotpolrol tartrate 12.5 mg BID and is also on plavix 75mg once daily, crestor 10mg once daily Assessment & Plan (10/24/2019 10:17 AM CDT): Stable. Cont. Current meds. Followed by cardiology. Assessment & Plan (01/23/2019 2:27 PM CDT): Asx. Cont current meds. Arthropathy of cervical facet joint 11/10/2016 Primary hypertension 02/18/2015 Assessment & Plan (04/03/2024 8:58 AM LATHE SANDER): Blood Pressure Management BP Readings from Last 3 Encounters: 04/02/24 (!) 180/118 01/05/24 130/78 11/22/23 110/68 Chronic condition Status - worse, not at goal Current medications are: Losartan 100 mg daily, Carvedilol 6.25 mg BID, --> has not been taking Amlodipine 10 mg daily, restart medication, prescription sent in Patient is compliant with medications. Patient denies any side effects or adverse side effects from the medication/s. Follow a low salt diet Patient has known obstructive sleep apnea and is currently not on CPAP due to not tolerating device. Monitor blood pressure regularly at home and send me logs of BP in 2 weeks so I can review it The ASCVD Risk score (Feliz LAWLER, et al., 2019) failed to calculate for the following reasons: Risk score cannot be calculated because patient has a medical history suggesting prior/existing ASCVD Lab Results Component Value Date LDLCALC 109 04/02/2024 Lab Results Component Value Date GLUCOSE 95 04/02/2024 CALCIUM 8.9 04/02/2024 SODIUM 142 04/02/2024 POTASSIUM 4.0 04/02/2024 CO2 25 04/02/2024 CHLORIDE 108 04/02/2024 BUNSER 26 (H) 04/02/2024 CREATININE 1.30 (H) 04/02/2024 Assessment & Plan (01/06/2024 4:51 AM CDT): Blood Pressure Management BP Readings from Last 3 Encounters: 01/05/24 130/78 11/22/23 110/68 11/14/23 (!) 168/104 Chronic condition Status - better controlled Current medications are: Losartan 100 mg daily, Carvedilol 6.25 mg BID, Amlodipine 10 mg daily Patient is compliant with medications. Patient denies any side effects or adverse side effects from the medication/s. Follow a low salt diet Patient has known obstructive sleep apnea and is currently not on CPAP due to not tolerating device. Monitor blood pressure regularly at home and send me logs of BP in 2 weeks so I can review it The ASCVD Risk score (Feliz LAWLER, et al., 2019) failed to calculate for the following reasons: The patient has a prior CO or stroke diagnosis Lab Results Component Value Date LDLCALC 159 (H) 01/05/2024 Lab Results Component Value Date GLUCOSE 101 01/05/2024 CALCIUM 8.8 01/05/2024 SODIUM 141 01/05/2024 POTASSIUM 4.4 01/05/2024 CO2 24 01/05/2024 CHLORIDE 106 01/05/2024 BUNSER 16 01/05/2024 CREATININE 1.19 (H) 01/05/2024 Assessment & Plan (11/14/2023 2:57 PM CDT): Blood Pressure Management BP Readings from Last 3 Encounters: 11/14/23 (!) 168/104 11/13/23 (!) 194/68 06/23/23 (!) 190/88 Chronic condition Status - worse, poorly controlled Current medications are: Losartan 100 mg daily, Carvedilol 6.25 mg BID, Amlodipine 10 mg daily (increase losartan from 50 mg to 100 mg daily on prior visit) Patient is compliant with medications. Patient denies any side effects or adverse side effects from the medication/s. Follow a low salt diet Patient has known obstructive sleep apnea and is currently not on CPAP due to not tolerating device. Monitor blood pressure regularly at home and send me logs of BP in 2 weeks so I can review it The ASCVD Risk score (Feliz LAWLER, et al., 2019) failed to calculate for the following reasons: The patient has a prior CO or stroke diagnosis Lab Results Component Value Date LDLCALC 141 (H) 06/23/2023 Lab Results Component Value Date GLUCOSE 79 02/22/2023 CALCIUM 9.4 02/22/2023 SODIUM 141 02/22/2023 POTASSIUM 4.1 02/22/2023 CO2 27 02/22/2023 CHLORIDE 104 02/22/2023 BUNSER 19 02/22/2023 CREATININE 1.04 02/22/2023 Assessment & Plan (06/24/2023 4:15 AM LATHE SANDER): Blood Pressure Management BP Readings from Last 3 Encounters: 06/23/23 170/100 06/02/23 140/90 02/22/23 150/82 Chronic condition Status - worse, poorly controlled Current medications are: Losartan 50 mg daily, Carvedilol 6.25 mg BID, Amlodipine 10 mg daily ---> increase Losartan from 50 to 100 mg daily, new script sent in Patient is compliant with medications. Patient denies any side effects or adverse side effects from the medication/s. Follow a low salt diet Monitor blood pressure regularly at home and send me logs of BP in 2 weeks so I can review it The 10-year ASCVD risk score (Feliz LAWLER et al., 2019) is: 33.6% Values used to calculate the score: Age: 73 years Sex: Female Is Non- : No Diabetic: No Tobacco smoker: No Systolic Blood Pressure: 170 mmHg Is BP treated: Yes HDL Cholesterol: 36 mg/dL Total Cholesterol: 171 mg/dL Lab Results Component Value Date LDLCALC 63 02/22/2023 Lab Results Component Value Date GLUCOSE 79 02/22/2023 CALCIUM 9.4 02/22/2023 SODIUM 141 02/22/2023 POTASSIUM 4.1 02/22/2023 CO2 27 02/22/2023 CHLORIDE 104 02/22/2023 BUNSER 19 02/22/2023 CREATININE 1.04 02/22/2023 Assessment & Plan (06/02/2023 12:23 PM LATHE SANDER): Blood Pressure Management BP Readings from Last 3 Encounters: 06/02/23 140/90 02/22/23 150/82 01/06/22 118/68 Chronic condition Status - better controlled, near optimal Current medications are: Losartan 50 mg daily, Carvedilol 6.25 mg BID Patient is compliant with medications. Patient denies any side effects or adverse side effects from the medication/s. Follow a low salt diet Monitor blood pressure regularly at home and send me logs of BP in 2 weeks so I can review it The 10-year ASCVD risk score (Feliz LAWLER, et al., 2019) is: 24.2% Values used to calculate the score: Age: 73 years Sex: Female Is Non- : No Diabetic: No Tobacco smoker: No Systolic Blood Pressure: 140 mmHg Is BP treated: Yes HDL Cholesterol: 36 mg/dL Total Cholesterol: 171 mg/dL Lab Results Component Value Date LDLCALC 63 02/22/2023 Lab Results Component Value Date GLUCOSE 79 02/22/2023 CALCIUM 9.4 02/22/2023 SODIUM 141 02/22/2023 POTASSIUM 4.1 02/22/2023 CO2 27 02/22/2023 CHLORIDE 104 02/22/2023 BUNSER 19 02/22/2023 CREATININE 1.04 02/22/2023 Assessment & Plan (02/24/2023 11:37 AM LATHE SANDER): Blood Pressure Management BP Readings from Last 3 Encounters: 02/22/23 150/82 01/06/22 118/68 10/07/21 122/60 Chronic condition Status - is not adequately controlled,worse Current medications are: Losartan 50 mg daily, Carvedilol 6.25 mg BID Patient is compliant with medications. Patient denies any side effects or adverse side effects from the medication/s. Follow a low salt diet Monitor blood pressure regularly at home and send me logs of BP in 2 weeks so I can review it The 10-year ASCVD risk score (Feliz LAWLER, et al., 2019) is: 27.3% Values used to calculate the score: Age: 73 years Sex: Female Is Non- : No Diabetic: No Tobacco smoker: No Systolic Blood Pressure: 150 mmHg Is BP treated: Yes HDL Cholesterol: 36 mg/dL Total Cholesterol: 171 mg/dL Lab Results Component Value Date LDLCALC 63 02/22/2023 Lab Results Component Value Date GLUCOSE 79 02/22/2023 CALCIUM 9.4 02/22/2023 SODIUM 141 02/22/2023 POTASSIUM 4.1 02/22/2023 CO2 27 02/22/2023 CHLORIDE 104 02/22/2023 BUNSER 19 02/22/2023 CREATININE 1.04 02/22/2023 Assessment & Plan (01/06/2022 9:26 AM CDT): Chronic and stable. At Goal <130/80. Continue current medication. Will continue to monitor Assessment & Plan (09/09/2021 4:22 PM CDT): Chronic and stable. Continue current medication. Assessment & Plan (05/27/2021 9:28 PM LATHE SANDER): Elevated, BP goal is < 140/90. Low sodium diet recommended. Take meds as prescribed. Assessment & Plan (09/24/2020 12:29 PM CDT): Clinically improved, continue current meds. Assessment & Plan (08/09/2020 1:35 PM CDT): Improving but remains elevated. Referral placed so patient can f/u with her chairman & chief executive officer. Patient encouraged to call us back once she has her prescription medication in front of her. BP goal is < 150/90. Increase amlodipine 5 mg qhs to 10 mg qhs. Assessment & Plan (03/03/2020 1:38 PM LATHE SANDER): Patient with elevated blood pressure readings Currently on Metoprolol 25mg once daily and Lisinopril at 5 mg once daily May increase it to 10mg once daily for better control Assessment & Plan (10/24/2019 10:15 AM CDT): Elevated, bp goal < 150/90. Patient non-compliant with treatment plan. Cont current meds. Assessment & Plan (01/23/2019 2:24 PM CDT): Improved. I believe patient is being seen and managed by cardiology. Will attempt to get office notes from current chairman & chief executive officer. Acquired hypothyroidism 02/18/2015 Overview (01/06/2024): 01/09 - worse Assessment & Plan (04/02/2024 1:01 PM LATHE SANDER): - chronic condition, improved control - currently on Levothyroxine 112 mcg daily --> past due for repeat lab work that was ordered when dose of medication was increased, reminder provided, labs ordered - continue current management Lab Results Component Value Date TSH 12.78 (H) 04/02/2024 TSH 23.13 (H) 01/05/2024 TSH 4.06 06/23/2023 FREET4 0.93 04/02/2024 FREET4 1.25 02/22/2023 FREET4 1.60 09/25/2020 Assessment & Plan (01/06/2024 6:42 AM CDT): - chronic condition, worse - currently on Levothyroxine 100 mcg daily --> increase to 112 mcg daily, recheck in 2 months - recheck lab, order placed and results as shown below - continue current management Lab Results Component Value Date TSH 23.13 (H) 01/05/2024 TSH 4.06 06/23/2023 TSH 0.28 (L) 02/22/2023 FREET4 1.25 02/22/2023 FREET4 1.60 09/25/2020 Assessment & Plan (06/24/2023 4:12 AM LATHE SANDER): - chronic condition, better controlled - currently on Levothyroxine 100 mcg daily - on prior visit recommended to stop Levothyroixien 112 mcg daily and changed to Levothyroixine 100 mcg daily on last visit due to low TSH - recheck lab, order placed and results as shown below - continue current management Lab Results Component Value Date TSH 0.28 (L) 02/22/2023 TSH 0.98 09/09/2021 TSH 0.39 05/26/2021 TSH 0.40 05/26/2021 FREET4 1.25 02/22/2023 FREET4 1.60 09/25/2020 Assessment & Plan (06/02/2023 12:21 PM LATHE SANDER): - chronic condition, suboptimally controlled - currently on Levothyroxine 100 mcg daily - most recent lab showed low TSH, on last visit recommended to stop Levothyroixien 112 mcg daily and change to Levothyroixine 100 mcg daily on last visit - recheck lab on next visit, order placed - continue current management Lab Results Component Value Date TSH 0.28 (L) 02/22/2023 TSH 0.98 09/09/2021 TSH 0.39 05/26/2021 TSH 0.40 05/26/2021 FREET4 1.25 02/22/2023 FREET4 1.60 09/25/2020 Assessment & Plan (02/24/2023 11:33 AM LATHE SANDER): - chronic condition, stable status - currently on Levothyroxine 112 mcg daily - reviewed outside labs which showed low TSG and elevated T4 from few months ago - rechecked lab --> recommend to stop Levothyroixien 112 mcg daily and change to Levothyroixine 100 mcg daily, new script sent in - continue current management Lab Results Component Value Date TSH 0.28 (L) 02/22/2023 TSH 0.98 09/09/2021 TSH 0.39 05/26/2021 TSH 0.40 05/26/2021 FREET4 1.25 02/22/2023 FREET4 1.60 09/25/2020 Assessment & Plan (01/06/2022 9:26 AM CDT): Chronic and stable. Continue current medication. Labs last check 08/2021 and WNL Assessment & Plan (09/09/2021 4:17 PM CDT): Chronic and stable. Continue current medication. Will obtain lab and adjust meds prn Assessment & Plan (05/27/2021 9:27 PM LATHE SANDER): Asymptomatic. Stable. Continue current prescription medications. Assessment & Plan (04/03/2021 6:32 PM LATHE SANDER): TSH abnormal. Labs ordered, will follow. Assessment & Plan (09/24/2020 12:24 PM CDT): Asx. Continue current therapy. Assessment & Plan (03/03/2020 1:32 PM LATHE SANDER): - currently on levothyroxine 150mcg, recently increased by PCP Assessment & Plan (10/24/2019 10:16 AM CDT): Non-compliant with medications. Labs ordered, will follow. Assessment & Plan (01/23/2019 2:23 PM CDT): Labs ordered, will follow. Mixed dyslipidemia 02/18/2015 Assessment & Plan (04/02/2024 3:11 PM LATHE SANDER): - chronic condition - status: better controlled but not at goal - current management/medications: Rosuvastatin 10 mg daily - other comorbid conditions: CAD, HTN - patient is compliant with medications. - most recent LDL as shown below - maintain a healthy weight, diet - continue current management in mean time but may need adjustment or restarting medication - recheck labs, order placed with results as shown below Lab Results Component Value Date CHOL 177 04/02/2024 CHOL 230 (H) 01/05/2024 CHOL 215 (H) 06/23/2023 Lab Results Component Value Date HDL 39 (L) 04/02/2024 HDL 35 (L) 01/05/2024 HDL 37 (L) 06/23/2023 Lab Results Component Value Date LDLCALC 109 04/02/2024 LDLCALC 159 (H) 01/05/2024 LDLCALC 141 (H) 06/23/2023 LDL 161 (H) 07/03/2015 Lab Results Component Value Date TRIG 165 (H) 04/02/2024 TRIG 194 (H) 01/05/2024 TRIG 183 (H) 06/23/2023 Lab Results Component Value Date ALT 7 01/05/2024 AST 13 01/05/2024 ALKPHOS 64 01/05/2024 BILITOT 0.3 01/05/2024 Assessment & Plan (01/06/2024 6:48 AM CDT): - chronic condition - status:poorly controlled, worse, large increase in LDL noted - current management/medications: suspect has not been on Rosuvastatin 10 mg daily, patient to check her medication list at home and let me know --> has been out of it, restart medication, refill provided - other comorbid conditions: CAD, HTN - patient is compliant with medications. - most recent LDL as shown below - maintain a healthy weight, diet - continue current management in mean time but may need adjustment or restarting medication - recheck labs, order placed Lab Results Component Value Date LDLCALC 141 (H) 06/23/2023 Lab Results Component Value Date ALT 10 02/22/2023 AST 16 02/22/2023 ALKPHOS 85 02/22/2023 BILITOT 0.2 02/22/2023 Assessment & Plan (06/24/2023 4:13 AM LATHE SANDER): - chronic condition - status:poorly controlled, worse, large increase in LDL noted - current management/medications: suspect has not been on Rosuvastatin 10 mg daily, patient to check her medication list at home and let me know - other comorbid conditions: CAD, HTN - patient is compliant with medications. - most recent LDL as shown below - maintain a healthy weight, diet - continue current management in mean time but may need adjustment or restarting medication Lab Results Component Value Date LDLCALC 63 02/22/2023 Lab Results Component Value Date ALT 10 02/22/2023 AST 16 02/22/2023 ALKPHOS 85 02/22/2023 BILITOT 0.2 02/22/2023 Assessment & Plan (06/02/2023 12:23 PM LATHE SANDER): - chronic condition - status: is adequately controlled. - current management/medications: Rosuavstatin 10 mg daily - other comorbid conditions: CAD, HTN - patient is compliant with medications. - most recent LDL as shown below - maintain a healthy weight, diet - continue current management Lab Results Component Value Date LDLCALC 63 02/22/2023 Lab Results Component Value Date ALT 10 02/22/2023 AST 16 02/22/2023 ALKPHOS 85 02/22/2023 BILITOT 0.2 02/22/2023 Assessment & Plan (02/22/2023 1:54 PM LATHE SANDER): - chronic condition - status: is adequately controlled. - current management/medications: Rosuavstatin 10 mg daily - other comorbid conditions: CAD, HTN - patient is compliant with medications. - most recent LDL as shown below - maintain a healthy weight, diet - will monitor closely Lab Results Component Value Date LDLCALC 73 09/09/2021 Lab Results Component Value Date ALT 11 09/25/2020 AST 20 09/25/2020 ALKPHOS 73 09/25/2020 BILITOT 0.3 09/25/2020 Assessment & Plan (09/24/2020 12:25 PM CDT): LDL at goal of < 70, cont current mgmt. Assessment & Plan (03/05/2020 8:09 AM LATHE SANDER): - compliant with Crestor 10mg once daily, monitor diet, has lose some weight intentionally - LDL 62 on 10/2019 and triglyceride was 249 - not on fish oil supplementation Assessment & Plan (10/24/2019 10:15 AM CDT): Low cholesterol diet recommended. Cont current meds. Assessment & Plan (01/23/2019 2:25 PM CDT): Elevated, cont current meds, labs ordered. Aortic ejection murmur 02/18/2015 Obstructive sleep apnea syndrome 02/18/2015 Overview (01/05/2024): Not on CPAP, did not like it Assessment & Plan (01/05/2024 9:53 AM CDT): - chronic, uncontrolled - had CPAP in past but could not tolerate it --> did not like it and gave it to someone else to use it - has known CAD, hypertension - could contribute to fatigue, headaches Assessment & Plan (02/22/2023 1:40 PM LATHE SANDER): - chronic, uncontrolled - had CPAP in past but could not tolerate it --> did not like it and gave it to someone else to use it - has known CAD, hypertension Assessment & Plan (05/27/2021 9:27 PM LATHE SANDER): Clinically improved. Will benefit from continuous use of CPAP. Encouraged continued compliance. Assessment & Plan (09/24/2020 12:20 PM CDT): Patient does NOT use CPAP. She has one but states that it drove her nuts. Assessment & Plan (03/03/2020 1:33 PM LATHE SANDER): - history of GERDA, non-compliant with CPAP use - did not like the use of CPAP on her face Resolved Problems Problem Noted Date Diagnosed Date Resolved Date Mixed hyperlipidemia 01/06/2022 024 Assessment & Plan (01/06/2022 9:20 AM CDT): Chronic and stable. Continue current medication. Last Lipid panel 08/2021. Will continue to monitor Medicare annual wellness visit, subsequent 09/09/2021 02/24/2023 Assessment & Plan (09/09/2021 4:15 PM CDT): Annual Medicare wellness exam completed today. All questionnaires completed and reviewed with patient. No Concerns. BMI:35 Obese Dietary and exercise recommendations given Routine screening labs ordered:TSH, BMP, Lipid, Vitamin D Preventative screening ordered:DEXA, Mammo Routine vaccines given:None POA paperwork given to patient for completion. RTC when completed. Referrals placed prn Elevated serum creatinine 05/26/2021 Assessment & Plan (05/27/2021 9:27 PM LATHE SANDER): Resolved. Cont current medications. Dependent edema 05/26/2021 04/02/2024 Assessment & Plan (01/06/2022 9:24 AM CDT): Mild and ongoing. Per patient Cardiology eval was WNL this year. Will request note from Dr. Ramirez's office. multifactorial -medication side effect (Norvasc) and high salt intake from diet. - Continue with DASH Diet - Continue with compression hose use while up and moving throughout the day. -elevate feet when sitting -Will continue to monitor symptoms and will re-evaluate if needed at f/u Assessment & Plan (10/07/2021 11:11 AM CDT): Mild. Likely multifactorial -medication side effect (Norvasc) and high salt intake from diet. Review of previous PCM notes show symptom has been intermittently ongoing for a while. She currently under evaluation for murmur with Cardiology who follows her regularly (ECHO scheduled) -handout on dash diet given -recommend compression hose. Patient states that she will ordered through essence -elevate feet when sitting -continue to monitor symptoms and will re-evaluate in 3 months at follow-up or sooner if needed (consider vascular studies if symptoms persist or worsen despite treatment) Assessment & Plan (05/27/2021 9:26 PM LATHE SANDER): No edema on today's exam, cont current meds. Bilateral leg cramps 04/03/2021 023 Assessment & Plan (04/03/2021 6:31 PM LATHE SANDER): Will check potassium level and electrolyte disorders. Labs ordered. Fatigue 04/03/2021 02/24/2023 Assessment & Plan (04/03/2021 6:30 PM LATHE SANDER): Labs ordered, increase daily exercise as tolerated. Acute hip pain, left 11/27/2020 023 Chronic left-sided low back pain without sciatica 11/27/2020 02/24/2023 Degenerative disc disease, cervical 11/06/2020 06/23/2023 Cervical radiculopathy 11/06/202002/24 Cervicalgia 11/06/2020 02/24/2023 Insomnia secondary to chronic pain 11/06/2020 04/03/2024 Assessment & Plan (06/23/2023 2:36 PM LATHE SANDER): - chronic, not at goal - has difficulty with sleep initiation - has been on Zolpidem 5 mg nightly in the past by prior PCP - currently taking OTC allergy medications which have helped her with her sleep - continue current management at this time Assessment & Plan (02/22/2023 1:54 PM LATHE SANDER): - chronic, not at goal - has difficulty with sleep initiation - has been on Zolpidem 5 mg nightly in the past by prior PCP, wants to be restarted back on it but has been taking OTC allergy medications which have helped her with her sleep --> continue current management at this time snf current use of anticoagulant 11/06/2020 04/02/2024 RUQ abdominal pain 05/08/2019 Assessment & Plan (05/08/2019 9:45 AM LATHE SANDER): Recommended further eval with GI prior to seeing surgeon due to her pain currently being a 1 - 2 out 10, however, patient opted to go to surgeon first. Referral given.Go to nearest ER if S/Sxs worsen. Hearing loss 04/20/2019 09/24/2020 Assessment & Plan (09/24/2020 12:28 PM CDT): Was told that she needed hearing aids, had one, but took it back. She states that it drove her crazy. Followed by my hearing is fine. Assessment & Plan (03/05/2020 8:09 AM LATHE SANDER): - known left ear hearing impairment - has had a hearing aid in left ear but did not like the fit and is not wearing aid - she had her hearing checked about 4 months ago Assessment & Plan (04/20/2019 4:17 PM LATHE SANDER): Monitor for improvement ETD (Eustachian tube dysfunction), left 04/19/2019 04/02/2024 Assessment & Plan (09/24/2020 12:33 PM CDT): ASX followed by ENT. Assessment & Plan (04/19/2019 2:58 PM LATHE SANDER): Suspect ear pressure to be multi-factorial: Eustachian tube and TMJ dysfunction with reduced vision in the left eye and reduced hearing in the left ear as well as muscle tension in neck, jaw and shoulders contributing Flonase 2 sprays into each nostril while looking down over the sink, do not sniff in or blow nose after use daily Hearing test in one month Recommend Eye exam Warm compresses and light massage to neck and shoulders Otalgia of left ear 04/19/2019 04/03/20 Assessment & Plan (09/09/2021 4:21 PM CDT): Chronic and worsen. Eval by ENT for this issue 04/2019. At that time believed symptoms maybe multifactorial - eustachian tube dysfunction, referred pain from cervical spine or neck muscles. Recommend trial of Flonase. Home exercise handouts. Consider physical therapy and plain films of C-spine if not improved. ENT also noted positive symptoms at TMJ may also be contributing. Will discuss further with patient and continue to monitor Left ear pain 04/01/2019 10/24/2019 Assessment & Plan (04/19/2019 2:58 PM LATHE SANDER): Suspect ear pressure to be multi-factorial: Eustachian tube and TMJ dysfunction with reduced vision in the left eye and reduced hearing in the left ear as well as muscle tension in neck, jaw and shoulders contributing Flonase 2 sprays into each nostril while looking down over the sink, do not sniff in or blow nose after use daily Hearing test in one month Recommend Eye exam Warm compresses and light massage to neck and shoulders Dizziness 04/01/2019 10/24/2019 Dysphagia 01/23/2019 09/24/2020 Gastric ulcer without hemorr rito or perforation 01/23/2019 10/24/2019 Gastro-esophageal reflux dis ease without esophagitis 01/23/2019 03/29/2019 Hereditary and idiopathic pe ripheral neuropathy 01/23/2019 09/24/2020 Overview (09/24/2020): Patient denies this dx. 09/24/2020 Other seborrheic keratosis 01/23/2019 0 09/24/2020 Patient's other noncomplianc e with medication regimen 01/23/2019 02/22/2023 Plantar wart 01/23/2019 09/24/2020 Posttraumatic stress disorder 01/23/2019 09/24/2020 Abnormal electrocardiography 02/18/2015 02/22/2023 Overview (07/23/2016): Abnormal EKG Encounters Date Type Department Care Team Description 11/07/2024 ACO Medication Access [facility] Accountable Care Organization [address] [place] [id number] Chani Cuevas CPhT 11/02/2024 Results Follow-Up [facility] Primary Care at [address] [id number] Aki Warner MD EMG/NCV - 10/31/2024 12:37 PM CDT - 10/31/2024 11:59 PM CDT Hospital Encounter [facility] Neurology Testing [address] [place] [address] Carpal tunnel syndrome of left wrist Discharge Disposition: Discharge to home or self care 10/08/2024 11:05 AM CDT [address] [address] 09/25/2024 10:30 AM CDT Office Visit [facility] Primary Care at [address] [phone] Aki Warner MD Carpal tunnel syndrome of left wrist (Primary Dx); TMJ arthralgia 09/17/2024 Telephone [facility] Primary Care at [id number] [place] [address] Aki Warner MD Referral Request 09/11/2024 Telephone [facility] Primary Care at [address] [place] [address] Aki Warner MD Scheduling Appointments from Last 3 Months Immunizations Immunization Administration Dates Next Due Influenza, Quadrivalent, Hig h Dose, Preservative Free, Intrr 03/17/2021,03/03/2020 Influenza, Quadrivalent, Spl it, Preservative Free, Intramuscular 01/20/2022 Influenza, Trivalent, High D ose, Split, Preservative Free, Intramuscular 01/05/2024 Influenza, Trivalent, Preser vative Free, Intramuscular 12/17/2014 Influenza, Unspecified 12/23/2023(Deferr ed: Patient Refused),12/14/2023(Deferred: Patient Refused),02/22/2023(Deferred: Patient Refused),02/04/2022(Deferred: Patient Refused),12/25/2018 Pfizer SARS-CoV-2 Monovalent Vaccination (12+ Yrs) PURPLE 08/10/2020,07/15/2020 Pneumococcal Conjugate PCV 13 01/23/2019 Pneumococcal Polysaccharide PPV23 04/18/2016,04/2015 Tdap 02/25/2016 ZOSTER Recombinant 04/26/2022,01/29/2022 Surgical History Surgery Date Site/Laterality Comments WI NEUROPLASTY &/TRANSPOS MEDIAN NRV CARPAL TUNNE Right Neuroplasty Decompression Median Nerve At Carpal Tunnel - (Added by TW Conv) SPINE SURGERY cervical X 2, Lumbar X 2 ELBOW SURGERY Left TUBAL LIGATION RECTAL SURGERY IR PICC LINE PLACEMENT > 5 YEARS 10/05/2017 N/A COLONOSCOPY 04/18/2016 - 04/17/2017 can't remember where, and uncertain on date POLYPECTOMY HEART SURGERY 04/18/2017 - 04/17/2018 states had open heart surgery in 2018 CARDIAC PACEMAKER PLACEMENT 04/18/2017 - 04/17/2018 CATARACT EXTRACTION CARDIAC STENT PLACEMENT 08/16/2022 Medical History Medical History Date Comments Personal history of transien t ischemic attack (TIA), and cerebral infarction without residual deficits History of stroke - (Added b y TW Conv) Personal history of other di seases of the musculoskeletal system and connective tissue History of osteopenia - (Add ed by TW Conv) Delayed emergence from general anesthesia Coronary artery disease Hyperlipidemia Hypertension Aortic valve stenosis Mitral valve regurgitation Peptic ulceration Hypothyroidism Stroke (HCC) Depression Arthritis Vertigo Sleep apnea Colon polyp Neck pain Low back pain Chronic pain disorder Family History Medical History Relation Name Comments Alzheimer's disease Father Alzheime r's disease; Heart attack Mother Myocardial infa rction; Heart disease Mother Family history of cardiac disorder - (Added by TW Conv) Hypertension Other Family history of hypertension - (Added by TW Conv) Cancer Neg Hx Diabetes Neg Hx Glaucoma Neg Hx Macular degeneration Neg Hx Retinal detachment Neg Hx Thyroid disease Neg Hx Relation Name Status Comments Father (Age 83) Mother Other Social History Tobacco Use Types Packs/Day Years Used Date Smoking Tobacco: Never Passive Smoke Exposure: Never Smokeless Tobacco: Never Tobacco Cessation:Counseling Given: No Alcohol Use Standard Drinks/Week Comments Yes 0 (1 standard drink = 0.6 oz pur e alcohol) occasional glass of wine AUDIT-C Answer Date Recorded Q1: How often do you have a drink containing alc ohol? 2-4 times a month 04/02/2024 Q2: How many drinks containi ng alcohol do you have on a typical day when you are drinking? 1 or 2 04/02/2024 Q3: How often do you have si x or more drinks on one occasion? Never 04/02/2024 PHQ-2 Answer Date Recorded PHQ-2 Total Score (If total score is 3 or more points, staff should administer the PHQ-9) 0 09/25/2024 PRAPARE - Transportation Answer Date Re corded In the past 12 months, has l ack of transportation kept you from medical appointments or from getting medications? No 05/19 In the past 12 months, has l ack of transportation kept you from meetings, work, or from getting things needed for daily living? No 06/02/2020 Personal Safety Answer Date Recorded Have you ever been in or are you currently in a harmful physical or emotional relationship or is someone making you feel afraid or unsafe? Denies 11/13/2023 Comments No Sex and Gender Information Value Date Recorded Sex Assigned at Not on file Legal Sex Female 11:57 AM LATHE SANDER Gender Identity Not on file Sexual Orientation Not on file Obstetrics History Para Term AB IAB SAB Ectopic Multiple Livin g Live Births 2 2 2 Date Outcome GA Total Labor Labor/2nd/3rd Weight Sex Type Anes PTL Stefanie A1 A5 Name Clin Term Term Last Filed Vital Signs Vital Sign Reading Time Taken Comments Blood Pressure 134/76 09/25/2024 10:34 AM CDT Pulse 70 09/25/2024 10:34 AM CDT Temperature 36.7 C (98.1 F) 09/25/2024 10:34 AM CDT Respiratory Rate 16 04/02/2024 9:37 AM LATHE SANDER Oxygen Saturation 98% 09/25/2024 10:34 AM CDT Inhaled Oxygen Concentration - - Weight 84.9 kg (187 lb 3.2 oz) 09/25/2024 10:34 AM CDT Height 165.1 cm (5' 5) 09/25/2024 10:34 AM CDT Body Mass Index 31.15 09/25/2024 10:34 AM CDT Plan of Treatment Health Maintenance Due Date Last Done Comments Covid-19 Vaccine ( - 2023-2 5 season) 2023 08/10/2020, 07/15/2020 Influenza Vaccine (#1) 2024 , 01/20/2022, 03/17/2021, Additional history exists Well Visit 65+ 04/02/2025 04/02/2024, 1110/2022, 09/08/2021, Additional history exists Depression Screening 09/25/2025 09/25/2024, 04/02/2024, 01/05/2024, Additional history exists Fall Risk Assessment 09/25/2025 09/25/2024, 04/02/2024, 01/05/2024, Additional history exists DTaP/Tdap/Td Vaccine (2 - Td or Tdap) 02/24/2026 02/25/2016 Osteoporosis Screening-Bone Density Scan 08/21/2026 08/21/2024, 09/21/2021 Hepatitis C Screening Completed 01/23/2019, Pneumococcal vaccine 65+ Completed , 04/18/2016, 04/18/2015 Colon Cancer Screening-CT Colonography Discontinued 06/04/2019 Colon Cancer Screening-Colonoscopy Discontinued 06/04/2019 Colon Cancer Screening-DNA Stool Discontinued 06/04/19 Colon Cancer Screening-FIT Discontinued 06/04/2019 Colon Cancer Screening-FOBT Discontinued 06/04/2019 Colon Cancer Screening-Sigmoidoscopy Discontinued 06/04/2019 Colorectal Cancer Screening Discontinued Breast Cancer Screening-Mammogram Discontinued 09/08/2021, 05/03/2020, 02/28/2019 Zoster Vaccine Completed 04/26/2022, 01/29/2022 Hepatitis B Screening Completed 01/05/2024 Medical Devices Implanted Type Area [employer] Device Identifier Shelf Expiration Date Model / Serial / Lot [employer] [id number]/58 Tendril Sts 6fr 58cm Is-1 Connector Active Fixation Bipolar Soft - [id number] - [id number] Implanted:Qty: 1 on 10/11/2017 by Sona Napier MD at [facility] Lead [employer] 08/15/2020 [id number]/58 / [id number] / [employer] [id number]/52 Tendril Sts 6fr 52cm Is-1 Connector Active Fixation Bipolar Soft - [id number] - [id number] Implanted:Qty: 1 on 10/11/2017 by Sona Napier MD at [facility] Lead [employer] 06/15/2020 2088TC/52 / [id number] / [employer] [id number] Assurity Mri [id number] 2 Chamber Is-1 Connector Thk6mm Pacemaker - [id number] - [id number] Implanted:Qty: 1 on 10/11/2017 by Sona Napier MD at [facility] Pacemaker [employer] 03/17/2019 [id number] / [id number] / Sr [employer] [id number] Bailey-Edward s [place] Magna Ease 23mm Bioprosthesis - [id number] - [id number] Implanted:Qty: 1 on 09/30/2017 by Lucas Perez MD at [facility] N/A: Chest Sr [employer] 06/19/2021 [id number] / [id number] / Procedures Procedure Name Priority Date/Time Associated Diagnosis Comments EMG/NCV Routine 10/31/2024 1:51 PM CDT Carpal tunnel syndrome of left wrist CLINICAL PATHOLOGY REPORT Routine 2024 11:11 AM CDT EGFR Routine 10/08/2024 11:11 AM CDT URINALYSIS, MICROSCOPIC ONLY Routine 11:11 AM CDT DIFFERENTIAL AUTO Routine 10/08/2024 11:11 AM CDT ALBUMIN CREATININE RATIO, URINE Routine 10/08/2024 11:11 AM CDT URINALYSIS AND REFLEX TO MICROSCOPIC Routine 10/08/2024 11:11 AM CDT PROTEIN ELECTROPHORESIS, WIT H REFLEX, SERUM Routine 10/08/2024 11:11 AM CDT URIC ACID Routine 10/08/2024 11:11 AM CDT IRON PROFILE W/ IBC Routine 10/08/2024 11:11 AM CDT 1,25 DIHYDROXYCHOLECALCIFEROL Routine 11:11 AM CDT PTH Routine 10/08/2024 11:11 AM CDT RENAL FUNCTION PANEL Routine 10/08/2024 11:11 AM CDT CBC WITH AUTO DIFFERENTIAL Routine 10/08 11:11 AM CDT DEXA AXIAL SKELETON BONE DENSITY 1 OR MORE SITES Schedule Routine, Read Routine (OP Routine) 08/21/2024 2:15 PM CDT Post-menopausal SCREENING MAMMOGRAM BILATERA L W ALFIE Schedule Routine, Read Routine (OP Routine) 09/08/2021 4:22 PM CDT Encounter for screening mammogram for breast cancer COLONOSCOPY 06/04/2019 1:43 PM LATHE SANDER HEPATITIS C ANTIBODY Routine 01/23/2019 11:48 AM CDT Encounter for hepatitis C screening test for low risk patient from Last 3 Months or Most Recently Relevant to Health Maintenance Results * EMG/NCV - (10/31/2024 1:51 PM CDT) Anatomical Region Laterality Modality EMG, EMG Narrative 10/31/2024 1:58 PM CDT This EMG nerve conduction velocity was performed for evaluation of pain and numbness of the left wrist and hand. A nerve conduction study of the left upper extremity was performed. In this extremity the left median and ulnar motor and sensory nerves and radial sensory nerves were examined. This has followed by EMG examination of the left upper extremity using a concentric needle. The following muscles were sampled left 1st dorsal interosseous abductor pollicis brevis pronator teres flexor digitorum profundus biceps triceps deltoid middle lower cervical paraspinal muscles. Abnormalities on nerve conduction velocity test included the following 1. There was a delay in the left median distal motor latencies at 5.3 milliseconds, a delay in the left median snap latencies at 4.1 milliseconds, a delay in the left median motor nerve conduction velocity at 48 m/sec and a delay in the left median F-wave latencies at 34 m/sec. The left median compound muscle action potential amplitudes were decreased at 1.8 mV at the wrist and 1.9 mV at the elbow. 2. The left ulnar motor nerve conduction velocity across the elbow was decreased slightly at 48 m/sec the left ulnar snap latencies was delayed at 3.9 millisecond. EMG examination showed no evidence of any active or chronic denervation. Polyphasic potentials were seen in the right abductor pollicis brevis muscle. Impression: 1. Abnormal EMG nerve conduction velocity because of 1. 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 carpal tunnel syndrome with chronic neuropathic changes in the left abductor pollicis brevis muscle. 2. Left ulnar neuropathy across the elbow and left ulnar neuropathy at the wrist. No evidence for cervical radiculopathy. Clinical correlation is recommended. us Aki Warner MD NEUROLOGY ORDERABLES Fi nal Result * Clinical pathology report (10/08/2024 11:11 AM CDT) Miscellaneous 10/08/2024 11: 11 AM CDT 10/09/2024 7:44 AM CDT Narrative 10/11/2024 8:58 AM CDT EPIC results best viewed via link to PDF [facility] Department of Pathology [address] [place], [place] [id number] Final Report Note to Patients: This report may contain a detailed description of human tissue sent by a health care provider to the laboratory for pathologic evaluation. The content of this report is essential for diagnosis and may provide important critical findings. This information may be unfamiliar to patients to review without a medical professional present. It is advised that the patient review this report in the presence of a health care provider who can answer questions and explain the details. Patient Name: YULISSA ARELLANO Address: [address] [place] [address] Gender: F : 1950 (Age: 74) Service: Location: N : [id number] Hospital #: [id number] Patient Type: [facility] EP ANCILLARY Taken: 10/08/2024 Received: 10/09/2024 Accessioned: 10/09/2024 Physician(s): Tam Mccann MD [facility] Specimen(s) Received A: Blood (serum) Serum Protein ElectrophoresisReported:10/11/2024 Interpretation: Serum Protein Electrophoresis: Normal serum protein electrophoresis pattern. Comment: Serum Protein Electrophoresis: There are no significant abnormalities of the protein fractions. See Epic and/or separate report for protein fraction table. Rusty Werner MD PhDReport Electronically Reviewed and Signed Out By Rusty Werner MD PhD 10/11/2024 08:57:21 The performance characteristics of some immunohistochemical stains, fluorescence in-situ hybridization tests and immunophenotyping by flow cytometry cited in this report (if any) were determined by the Surgical Pathology Department at [facility] as part of an ongoing quality system manager program and in compliance with federally mandated regulations drawn from the Clinical Laboratory Improvement Act of 1988 (CLIA '88). Some of these tests rely on the use of analyte specific reagents and are subject to specific labeling requirements by the US Food and Drug Administration. Such diagnostic tests may only be performed in a facility that is certified by the Department of Health and Human Services as a high complexity laboratory under CLIA '88. The FDA has determined that such clearance or approval is not necessary. This test is used for clinical purposes. It should not be regarded as investigational or for research. Nevertheless, federal rules concerning the medical use of analyte specific reagents require that the following disclaimer be attached to the report: This test was developed and its performance characteristics determined by the Surgical Pathology Department [facility]. It has not been cleared or approved by the U. S. Food and Drug Administration. REPORT IMAGES AND SCANNED DOCUMENTS, IF INCLUDED, ONLY VIEWABLE IN PDF VERSION OF REPORTe o Tam Mccann MD LAB PATHOLOGY ORDERABLES Final Result * (ABNORMAL) eGFR (10/08/2024 11:11 AM CDT) eGFR 53(L) >=60 mL/min/1. 73 m2 Comment: Interpretive Data Reference Interval Normal >/= 90 mL/min/1.73m2 Mildly decreased* 60 - 89 mL/min/1.73m2 Mildly to moderately decreased 45 - 59 mL/min/1.73m2 Moderately to severely decreased 30 - 44 mL/min/1.73m2 Severely decreased 15 - 29 mL/min/1.73m2 Kidney Failure < 15 mL/min/1.73m2 *Relative to young adult level Estimated glomerular filtration rate is determined by the 2020 CKD-EPI equation recommended by the National Kidney Foundation (A Unifying Approach to GFR Estimation: Recommendations of the NKF-ASK Task Force on Reassessing the Inclusion of Race in Diagnosing Kidney Disease, JASN 202). The CKD-EPI equation should not be used for patients with unstable renal function and has not been validated in children and those over 70. Current interpretive data was last reviewed 2021. Blood 10/08/2024 11:1 1 AM CDT 10/08/2024 11:22 AM CDT us Tam Mccann MD LAB BLOOD ORDERABLES Fin al Result [facility] ([place]) 1 [facility] Department [place] [address] * Differential, auto (10/08/2024 11:11 AM CDT) Neutrophil abs 2.49 1.50 - 6.50 K/cumm Imm gran abs 0.02 0.00 - 0.10 K/cumm [facility] ([place]) Lymphocyte abs 2.57 0.80 - 3.30 K/cumm [facility] ([place]) Monocyte abs 0.50 0.20 - 0.80 K/cumm [facility] ([place]) Eosinophil abs 0.11 0.00 - 0.50 K/cumm [facility] ([place]) Basophil abs 0.03 0.00 - 0.10 K/cumm [facility] ([place]) Neutrophil pct 43.7 % [facility] ([place]) Comment: Interpretive Data Percent cell count reference ranges are not reported, since discordance with absolute values may lead to misinterpretation of CBC data. Current Interpretive Data was last revised on 2017. Imm gran pct 0.3 % [facility] ([place]) Comment: Interpretive Data Percent cell count reference ranges are not reported, since discordance with absolute values may lead to misinterpretation of CBC data. Current Interpretive Data was last revised on 2017. Lymphocyte pct 44.9 % [facility] ([place]) Comment: Interpretive Data Percent cell count reference ranges are not reported, since discordance with absolute values may lead to misinterpretation of CBC data. Current Interpretive Data was last revised on 2017. Monocyte pct 8.7 % [facility] ([place]) Comment: Interpretive Data Percent cell count reference ranges are not reported, since discordance with absolute values may lead to misinterpretation of CBC data. Current Interpretive Data was last revised on 2017. Eosinophil pct 1.9 % [facility] ([place]) Comment: Interpretive Data Percent cell count reference ranges are not reported, since discordance with absolute values may lead to misinterpretation of CBC data. Current Interpretive Data was last revised on 2017. Basophil pct 0.5 % [facility] ([place]) Comment: Interpretive Data Percent cell count reference ranges are not reported, since discordance with absolute values may lead to misinterpretation of CBC data. Current Interpretive Data was last revised on 2017. Blood 10/08/2024 11:1 1 AM CDT 10/08/2024 11:22 AM CDT Tam Mccann MD LAB BLOOD ORDERABLES Fin al Result Performing Organization Address City/[facility]/ZIP Co de Phone Number [facility] ([place]) [address] [place] [address] [place] [address] * Iron profile w/ IBC (10/08/2024 11:11 AM CDT) Iron 81 35 - 145 mcg/dL TIBC 278 250 - 400 mcg/dL [facility] ([place]) Transferrin saturation 29 20 - 50 % [facility] ([place]) Blood 10/08/2024 11:1 1 AM CDT 10/08/2024 11:22 AM CDT Tam Mccann MD LAB BLOOD ORDERABLES Fin al Result Performing Organization Address [facility] Co de Phone Number [facility] ([place]) [address] [place] [address] [place] [address] * (ABNORMAL) Urinalysis reflex to microscopic (10/08/2024 11:11 AM CDT) Color, ur Yellow Yellow Clarity, ur Turbid(A) Clear [facility] ([place]) Specific gravity, ur 1.013 1.003 - 1.030 [facility] ([place]) pH, urine 5.0 [facility] ([place]) Comment: Interpretive Data U rine pH is affected by diet, medications, systemic acid-base disturbances, and renal tubular function. pH may affect urinary stone formation. For example, urine pH below 6.0 may help reduce the tendency for calcium phosphate stones and pH greater than 6.0 may reduce the tendency for uric acid stone formation. Source: [facility] Current Interpretive Data was last revised on 2017 Protein, ur ql Negative Negative [facility] ([place]) Glucose, ur ql Negative Negative [facility] ([place]) Ketones, ur Negative Negative [facility] ([place]) Bilirubin, ur Negative Negative [facility] ([place]) Blood, ur 2+(A) Negative [facility] ([place]) Urobilinogen, ur <2.0 <2.0 mg/dL [facility] ([place]) Nitrite, ur Negative Negative [facility] ([place]) Leukocyte esterase, ur Negative Negative [facility] ([place]) UA reflex comment Reflex to microscopic UA will be performed. [facility] ([place]) Urine 10/08/2024 11:1 1 AM CDT 10/08/2024 11:42 AM CDT us Tam Mccann MD LAB URINE ORDERABLES Fin al Result [facility] 1 [facility] Department [place] [address] * (ABNORMAL) CBC with auto differential (10/08/2024 11:11 AM CDT) WBC 5.72 3.80 - 9.90 K/cumm Hgb 12.0 11.9 - 15.5 g/dL [facility] ([place]) Hct 37.6 35.6 - 45.5 % [facility] ([place]) Plt 226 150 - 400 K/cumm [facility] ([place]) MPV 9.7 9.1 - 12.3 fL [facility] ([place]) RBC 4.08 3.90 - 5.20 M/cumm [facility] ([place]) MCV 92.2 81.3 - 96.4 fL [facility] ([place]) MCH 29.4 27.1 - 33.3 pg [facility] ([place]) MCHC 31.9(L) 32.3 - 35.7 g/dL [facility] ([place]) RDW CV 13.9 11.1 - 14.9 % [facility] ([place]) RDW SD 47.1 35.7 - 48.1 fL [facility] ([place]) NRBC abs 0.00 0.00 - 0.01 K/cumm [facility] ([place]) Blood 10/08/2024 11:1 1 AM CDT 10/08/2024 11:22 AM CDT us Tam Mccann MD LAB BLOOD ORDERABLES Fin al Result [facility] ([place]) 1 [facility] [place] [address] * Albumin Creatinine Ratio, Urine (10/08/2024 11:11 AM CDT) Albumin Ur 14.1 mg/L Comment: Interpretive Data No reference range established. Current interpretive data was last revised 2018. Testing performed by: [address] [address] Creatinine Ur 94.9 mg/dL [facility] ([place]) Comment: Interpretive Data No reference range established. Current interpretive data was last revised 2018. Testing performed by: [address] [address] Albumin Creatinine Ratio, Ur 15 1 - 29 mg/g [facility] ([place]) Comment:Testing performed by : [address] [address] Urine 10/08/2024 11:1 1 AM CDT 10/08/2024 1:40 PM CDT us Tam Mccann MD LAB URINE ORDERABLES Fin al Result [facility] ([place]) 1 [facility] [place] [address] * 1,25 Dihydroxycholecalciferol (10/08/2024 11:11 AM CDT) 1-25-di-OH Vit D 18 18 - 78 pg/mL [facility] Comment: ADDITIONAL INFORMATION This test was developed and its performance characteristics determined by [facility] in a manner consistent with CLIA requirements. This test has not been cleared or approved by the U.S. Food and Drug Administration. Test Performed by: [facility] - [facility] [address] [place] [address] Apparatus Cleaner: Tatiana Brennan Ph.D.; CLIA# [id number] Blood 10/08/2024 11:1 1 AM CDT 10/08/2024 11:22 AM CDT Tam Mccann MD LAB BLOOD ORDERABLES Fin al Result Performing Organization Address [facility]/ZIP Co de Phone Number [facility] ([place]) [address] [place] [address] [place] [address] [facility] * (ABNORMAL) Urinalysis, microscopic only (10/08/2024 11:11 AM CDT) WBC, ur 0-5 0 - 5 /HPF RBC, ur 3-5(A) 0 - 2 /HPF [facility] ([place]) Epithelial cells, squamous, ur 6-10(A) 0 - 5 /HPF [facility] ([place]) Bacteria, ur Trace(A) [facility] ([place]) Mucous, ur Present(A) [facility] ([place]) Urine 10/08/2024 11:1 1 AM CDT 10/08/2024 11:42 AM CDT Tam Mccann MD LAB URINE ORDERABLES Fin al Result Performing Organization Address City/[facility]/ZIP Co de Phone Number [facility] ([place]) 1 [facility] [place] [address] * Uric acid (10/08/2024 11:11 AM CDT) Uric acid 5.3 2.5 - 7.0 mg/dL Blood 10/08/2024 11:1 1 AM CDT 10/08/2024 11:22 AM CDT us Tam Mccann MD LAB BLOOD ORDERABLES Fin al Result [facility] ([place]) 1 [facility] Department [place] [address] * Protein electrophoresis with reflex, serum with interpretation (10/08/2024 11:11 AM CDT) Pathologist [facility] Protein, sr 6.5 6.2 - 8.2 g/dL Comment:Testing performed by : [address] [address] Albumin 3.8 3.2 - 5.0 g/dL [facility] ([place]) Comment:Testing performed by : [address], [address] Alpha-1 globulin 0.3 0.2 - 0.4 g/dL [facility] ([place]) Comment:Testing performed by : [address], [address] Alpha-2 globulin 0.6 0.5 - 1.0 g/dL [facility] ([place]) Comment:Testing performed by : [address] [address] Beta-1 globulin 0.4 0.3 - 0.6 g/dL [facility] ([place]) Comment:Testing performed by : [address] [address] Beta-2 globulin 0.4 0.2 - 0.6 g/dL [facility] ([place]) Comment:Testing performed by : [address], [address] Gamma globulin 0.9 0.5 - 1.7 g/dL [facility] ([place]) Comment:Testing performed by : [address], [address] SPEP interp See Cl Path Rpt [facility] ([place]) Comment:Testing performed by : [facility], [address] [place] [address], [place]., [address] Blood 10/08/2024 11:1 1 AM CDT 10/08/2024 1:40 PM CDT Tam Mccann MD LAB BLOOD ORDERABLES Fin al Result Performing Organization Address [facility] Co de Phone Number TANIA LOMBARDO (HARIKA) 1 [facility] [place] [address] * PTH (10/08/2024 11:11 AM CDT) PTH 51 15 - 65 pg/mL Blood 10/08/2024 11:1 1 AM CDT 10/08/2024 11:22 AM CDT Tam Mccann MD LAB BLOOD ORDERABLES Fin al Result Performing Organization Address [facility] de Phone Number TANIA LOMBARDO (HARIKA) 1 [facility] [place] [address] * Renal function panel (10/08/2024 11:11 AM CDT) Sodium 142 135 - 145 mmol/L Potassium, pl 4.4 3.3 - 4.9 mmol/L [facility] (HARIKA) Chloride 109 97 - 110 mmol/L [facility] ([place]) CO2 23 22 - 32 mmol/L [facility] ([place]AR[place]A) Anion gap 11 2 - 15 mmol/L [facility] ([place]AR[place]A) BUN 21 6 - 25 mg/dL [facility] (HARIKA) Creatinine 1.09 0.60 - 1.10 mg/dL [facility] (HARIKA) Glucose 95 70 - 199 mg/dL [facility] (HARIKA) Comment: Interpretive Data Fasting glucose >/= 126 mg/dl is diagnostic for diabetes. Fasting is defined as no caloric intake for at least 8 hours. Fasting glucose between 100 mg/dl to 125 mg/dl is diagnostic of prediabetes. In a patient with classic symptoms of hyperglycemia or hyperglycemic crisis, a random glucose >/= 200 mg/dl is diagnostic for diabetes. In the absence of unequivocal hyperglycemia, results should be confirmed by repeat testing. The classification and Diagnosis of Diabetes Diabetes Care 202; 46: S19-S40. Current interpretive data was last revised 2022. Calcium 8.6 8.5 - 10.3 mg/dL [facility] (HARIKA) Phosphorus, pl 3.5 2.3 - 4.5 mg/dL [facility] ([place]) Albumin 4.1 3.5 - 5.0 g/dL [facility] ([place]AR[place]) Blood 10/08/2024 11:1 1 AM CDT 10/08/2024 11:22 AM CDT us Tam Mccann MD LAB BLOOD ORDERABLES Fin al Result [facility] (HARIKA) 1 [facility] [place] [address] * Dexa Axial Skeleton Bone Density 1 or 2 Site (08/21/2024 2:15 PM CDT) Anatomical Region Laterality Modality Body N/A Other 08/22/2024 1:45 PM CDT Narrative 08/22/2024 1:46 PM CDT EXAM DESCRIPTION: DEXA AXIAL SKELETON BONE DENSITY 1 OR MORE SITES REASON FOR STUDY: 74 y/o year old F with given history of: Osteoporosis screening Screening. 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 CLINICAL INFORMATION: Current height: 64.5 inches Maximum height: 65 inches Weight: 182 pounds Risk factors: Postmenopausal, adult fracture COMPARISON: None available FINDINGS: AP LUMBAR SPINE L1-L4: Total BMD is 1.323 g/cm2 T-score is 2.5 LEFT HIP: Total BMD is 0.944 g/cm2 T-score is 0.0 Femoral neck BMD is 0.793 g/cm2 T-score is -0.5 FRAX: FRAX not reported due to T-scores of hip, femoral neck and/or spine being at or above -1.0 (Normal). IMPRESSION: Normal bone mass. REFERENCE: Bone mineral density: T-Score: Normal (T-score above or = -1.0) Low bone mass (T-score between -1.0 and -2.5) replaces the previously used term osteopenia Osteoporosis (T-score = or below -2.5) Z-Score: Within the expected range for age (Z-score above -2.0) Below the expected range for age (Z-score is -2.0 or below) Please see below follow up recommendations. Medical evaluation for secondary causes of low bone mineral density may be appropriate. FRAX is a World Health Organization validated fracture risk assessment tool that calculates a person's 10 year probability of a major osteoporosis related fracture and hip fracture. According to the National Osteoporosis Foundation guidelines, postmenopausal women and men age 50 or older with low bone mass and a 10 year probability of a major osteoporosis related fracture = or greater than 20% or a 10 year probability of a hip fracture = or greater than 3% should be considered for pharmacological treatment for the prevention of osteoporosis. For further information, including treatment recommendations, please refer to the 2019 ISCD Official Positions (http://www.iscd.org) and the NOF's Clinician's Guide to Prevention and Treatment of Osteoporosis (http://www.nof.org/professionals/clinical-guidelines) THIS IS AN ELECTRONICALLY VERIFIED FINAL REPORT 08/22/2024 1:46 PM - Electronically signed by Armando Tracy M.D. MF: [id number] Report ID: [id number] Reading Location: [id number] Procedure Note Armando Tracy MD - 08/22/2024 EXAM DESCRIPTION: DEXA AXIAL SKELETON BONE DENSITY 1 OR MORE SITES REASON FOR STUDY: 74 y/o year old F with given history of:Osteoporosis screening Screening. 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 CLINICAL INFORMATION: Current height: 64.5 inches Maximum height: 65 inches Weight: 182 pounds Risk factors: Postmenopausal, adult fracture COMPARISON: None available FINDINGS: AP LUMBAR SPINE L1-L4: Total BMD is 1.323 g/cm2 T-score is 2.5 LEFT HIP: Total BMD is 0.944 g/cm2 T-score is 0.0 Femoral neck BMD is 0.793 g/cm2 T-score is -0.5 FRAX: FRAX not reported due to T-scores of hip, femoral neck and/or spine beingat or above -1.0 (Normal). IMPRESSION: Normal bone mass. REFERENCE: Bone mineral density: T-Score: Normal (T-score above or = -1.0) Low bone mass (T-score between -1.0 and -2.5) replaces thepreviously used term osteopenia Osteoporosis (T-score = or below -2.5) Z-Score: Within the expected range for age (Z-score above -2.0) Below the expected range for age (Z-score is -2.0 or below) Please see below follow up recommendations. Medical evaluation forsecondary causes of low bone mineral density may be appropriate. FRAX is a World Health Organization validated fracture risk assessmenttool that calculates a person's 10 year probability of a major osteoporosisrelated fracture and hip fracture. According to the National OsteoporosisFoundation guidelines, postmenopausal women and men age 50 or older with low bonemass and a 10 year probability of a major osteoporosis related fracture = or greater than 20% or a 10 year probability of a hip fracture = or greaterthan 3% should be considered for pharmacological treatment for the preventionof osteoporosis. For further information, including treatment recommendations, please referto the 2019 ISCD Official Positions (http://www.iscd.org) and the NOF's Clinician's Guide to Prevention and Treatment of Osteoporosis (http://www.nof.org/professionals/clinical-guidelines) THIS IS AN ELECTRONICALLY VERIFIED FINAL REPORT 08/22/2024 1:46 PM - Electronically signed by Armando Tracy M.D. MF: [id number] Report ID: [id number] Reading Location: [place] [address] us Akijamar Warner MD IMG DXA PROCEDURES Neelima l Result * Screening Mammogram Bilateral W Alfie (09/08/2021 4:22 PM CDT) Anatomical Region Laterality Modality Breast Bilateral Mammography Narrative 09/08/2021 4:37 PM CDT BILATERAL DIGITAL MAMMOGRAPHY with tomography. The present examination has been compared to prior imaging studies dated 05/03/2020 and 02/28/2019. Mammography Findings CAD (computer-aided detection) software was utilized. The breasts are heterogeneously dense. This may lower the sensitivity of mammography. No masses, significant calcifications or other abnormalities are seen. Benign vascular calcifications again noted. Impression There is no mammographic evidence of malignancy. Screening mammogram in 1 year is recommended. BI-RADS Category 1: Negative PATIENT LETTER SENT us Eveline Villarreal MD IMG MAMMO PROCEDURES Final R esult * COLONOSCOPY (06/04/2019 1:43 PM LATHE SANDER) Anatomical Region Laterality Modality Other Narrative Procedure Note Purvi Lam MD - 06/04/2019 1:43 PM CST [facility] Patient Name: Yulissa Arellano Procedure Date: 06/04/2019 1:43 PM Date of : 1950 Admit Type: Outpatient Age: 69 Gender: Female Attending MD: Purvi Lam M.D. Room: [facility] ENDOSCOPY ROOM 1 Note Status: Finalized Patient Profile: This is a 69 year old female. History of adenoma polyps. No family history of colon cancer Procedure: Colonoscopy Indications: Surveillance: Personal history of adenomatous polypson last colonoscopy > 3 years ago, Last colonoscopy:2017 Referring MD: Sabrina Hatch D.O. Providers: Purvi Lam M.D. Impression: - One 14 mm polyp at the hepatic flexure, removedwith a hot snare. Resected and retrieved. Clips (MR conditional) were placed. - One 8 mm polyp in the transverse colon, removedwith a jumbo cold forceps. Resected and retrieved. - Three 5 to 8 mm polyps in the sigmoid colon,removed with a cold snare. Resected and retrieved. - Three 5 to 15 mm polyps in the rectum, removedwith a hot snare. Resected and retrieved. Clip (MR conditional) was placed. - Internal hemorrhoids. Recommendation: - Await pathology results. - Repeat colonoscopy in 3 years for screeningpurposes. - Resume Plavix (clopidogrel) at prior dose in 4days. Medicines: Monitored Anesthesia Care Complications: No immediate complications. Estimated Blood Loss: Estimated blood loss: none. Procedure: Pre-Anesthesia Assessment: - Prior to the procedure, a History and Physical was performed, and patient medications and allergieswere reviewed. The patient's tolerance of previous anesthesia was also reviewed. The risks and benefitsof the procedure and the sedation options and riskswere discussed with the patient. All questions were answered, and informed consent was obtained. Prior Anticoagulants: The patient has taken Plavix (clopidogrel), last dose was 2 days prior toprocedure. ASA Grade Assessment: III - A patient with severe systemic disease. After reviewing the risks and benefits, the patient was deemed in satisfactory condition to undergo the procedure. The benefits, risks and alternatives of theprocedure and sedation were discussed and informed consent was obtained. All questions were answered. Please referto the signed informed consent document in the medical record. The scope was passed under direct vision.The Pediatric Colonoscope PCF-[id number] was introduced through the anus and advanced to the the cecum, identified by appendiceal orifice andileocecal valve. The bowel preparation used was Miralax. The bowel preparation used was bisacodyl tablets. Bowel prep was administered using a split dose. Thequality of the bowel preparation was good. Findings: The perianal and digital rectal examinations were normal. The cecum appeared normal. The ascending colon appeared normal. A 14 mm polyp was found in the hepatic flexure in the proximal transverse colon. The polyp was semi-sessile. The polyp was removedwith a hot snare. Resection and retrieval were complete. To preventbleeding after the polypectomy, two hemostatic clips were successfully placed(MR conditional). There was no bleeding at the end of the procedure. A 8 mm polyp was found in the transverse colon. The polyp was semi-sessile. The polyp was removed with a jumbo cold forceps.Resection and retrieval were complete. Three semi-sessile polyps were found in the sigmoid colon. The polyps were 5 to 8 mm in size. These polyps were removed with a cold snare. Resection and retrieval were complete. Three polyps were found in the rectum. The polyps were 5 to 15 mm in size. Two smallest polyps were semi sessile and removed with a cold snare, and the 3rd larger polyps was pedunculated and removed withhot snare. Resection and retrieval were complete. To prevent bleedingafter the polypectomy, one hemostatic clip was successfully placed (MR conditional) on the larger polyp site. There was no bleeding at theend of the procedure. Internal hemorrhoids were found during retroflexion. The hemorrhoids were medium-sized. Electronically signed by Purvi Lam M.D. Purvi Lam M.D. 06/04/2019 2:45:33 PM Number of Addenda: 0 Note Initiated On: 06/04/2019 1:43 PM Procedure Code(s): --- Professional --- 69711, Colonoscopy, flexible; with removal of tumor(s), polyp(s), or other lesion(s) by snare technique 56801, 59, Colonoscopy, flexible; with biopsy, single or multiple Diagnosis Code(s): --- Professional --- Z86.010, Personal history of colonic polyps K64.8, Other hemorrhoids D12.3, Benign neoplasm of transverse colon (hepatic flexure orsplenic flexure) D12.5, Benign neoplasm of sigmoid colon K62.1, Rectal polyp CPT copyright 2017 [employer]. All rights reserved. The codes documented in this report are preliminary and upon legal researcher reviewmay be revised to meet current compliance requirements. Recognized by the [employer] for promoting quality in endoscopy us Purvi Lam MD ENDOSCOPY PROCEDURES Final Result * Hepatitis C antibody (01/23/2019 11:48 AM CDT) Hep C Ab Negative Negative TANIA LOMBARDO (HARIKA) Comment:Testing performed by : [facility], [address] [place] [address], [facility] Blood specimen (specimen) 01/23/2019 11:48 AM CDT 01/23/2019 6:29 PM CDT us Sabrina Hatch DO LAB MICROBIOLOGY - GENERAL ORDERABLES Edited Result - Final TANIA LOMBARDO (HARIKA) 1 [place] [address] from Last 3 Months or Most Recently Relevant to Health Maintenance Insurance [facility] MEDICARE ADVANTAGE [facility] UHC MEDICARE ADVANTAGE [facility] Address: [address] [address] [place] [address] Advance Directives For more information, please contact: [phone] * Full Code (Latest Code Status on File) Date Activated Date Inactivated Comments 06/04/2019 1:02 PM 06/04/2019 8:28 PM * Full Code Date Activated Date Inactivated Comments 06/04/2019 1:01 PM 06/04/2019 1:02 PM * Full Code Date Activated Date Inactivated Comments 10/15/2017 9:34 AM 04/05/2018 11:32 AM * Full Code Date Activated Date Inactivated Comments 09/30/2017 3:10 PM 10/13/2017 3:28 PM Care Teams Emt Relationship Specialty Start Date End Date Aki Warner MD [address] [facility] [address] [place] [address] PCP - General Family Medicine 09/25/24 Lucas Perez MD Surgeon Cardiothoracic Surgery 01/23/19 Kaushik Ramirez DO [address] [place] [address] Referring Physician Cardiology 09/24/20 Kaushik Ramirez DO [address] [place] [address] Referring Physician Cardiology 05/30/24
--- OUTSIDE RECORDS SUMMARY | 2024-12-10 14:45 | XMS_ITS | Clinical Summary ---
Author Organization [facility] Facility Address [address] [place] [address] Care Team Providers Care Wood Engraver Name Role Phone Aki Warner MD Primary Care Provider Allergies No known active allergies Medications amLODIPine (NORVASC) 10 MG tablet Take 10 mg by mouth 1 (one) time each day Active clopidogrel (PLAVIX) 75 MG tablet Take 75 mg by mouth 1 (one) time each day Active levothyroxine (SYNTHROID, LEVOTHROID) 112 MCG tablet TAKE 1 TABLET BY MOUTH IN THE SENIOR BI ARCHITECT BEFORE BREAKFAST 3 Active losartan (COZAAR) 100 MG tablet Take 100 mg by mouth in the morning. 5 Active rosuvastatin (CRESTOR) 10 MG tablet Take 10 mg by mouth 1 (one) time each day Active citalopram (CeleXA) 10 MG tablet Take 10 mg by mouth in the morning. 3 Active citalopram (CeleXA) 20 MG tablet Take 20 mg by mouth 1 (one) time each day in the morning Active cilostazol (PLETAL) 50 MG tablet Take 100 mg by mouth in the morning and 100 mg in the evening. Active Active Problems No known active problems Encounters Date Type Department Care Team Description 10/17/2024 2:30 PM CDT Office Visit [facility], [address] [place] [address] Tam Mccann MD Chronic kidney disease stage 3A (HCC) (Primary Dx) 10/17/2024 Refill [facility], [facility] [address] [facility] [address] [place] [address] Keesha Mas MA 10/15/2024 Documentation Only [facility], [address] [place] [address] Tam Mccann MD 10/12/2024 Documentation Only [facility], [address] [place] [address] Tam Mccann MD 10/09/2024 Documentation Only [facility], [address] [place] [address] Tam Mccann MD from Last 3 Months Family History Medical History Relation Comments Heart disease Mother Stroke Mother Dementia Paternal Grandmother Relation Status Comments Father Mother Paternal Grandmother Social History Tobacco Use Types Packs/Day Years Used Date Smoking Tobacco: Never Smokeless Tobacco: Never Tobacco Cessation:Counseling Given: Not Answered Alcohol Use Standard Drinks/Week Comments Not Currently 0 (1 standard drink = 0.6 oz pur e alcohol) Comments Unknown Sex and Gender Information Value Date Recorded Sex Assigned at Not on file Legal Sex Female 1:30 PM EST Gender Identity Not on file Sexual Orientation Not on file Last Filed Vital Signs Vital Sign Reading Time Taken Comments Blood Pressure 110/70 10/17/2024 2:53 PM CDT Pulse 76 10/17/2024 2:53 PM CDT Temperature 36.1 C (97 F) 10/17/2024 2:53 PM CDT Respiratory Rate 17 10/17/2024 2:53 PM CDT Oxygen Saturation 85% 10/17/2024 2:53 PM CDT Inhaled Oxygen Concentration - - Weight 83.9 kg (185 lb) 10/17/2024 2:53 PM CDT Height 165.1 cm (5' 5) 07/25/2024 1:11 PM CDT Body Mass Index 30.79 07/25/2024 1:11 PM CDT Plan of Treatment Upcoming Encounters Date Type Department Care Team (Late st Contact Info) Description 04/22/2025 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
--- OUTSIDE RECORDS SUMMARY | 2024-12-10 14:45 | XMS_ITS | Encounter Summary ---
Author Organization [facility] Address [address] [place] [address] Phone Care Team Providers Care Conversion Developer Name Role Phone Radha Landa MD Primary Care Provider Provider, Unknown Primary Care Provider Unavaila ble Reason for Visit * Reason Comments Medication Refill Encounter Details Date Type Department Care Team (Late st Contact Info) Description 10/25/2022 Refill [facility] - Primary Care - [place] [address] [place] [address] Stefan Sr, PAC [address] [place] [address] Medication Refill Social History Tobacco Use Types Packs/Day Years Used Date Smoking Tobacco: Never Smokeless Tobacco: Never Alcohol Use Standard Drinks/Week Comments Yes 0 (1 standard drink = 0.6 oz pur e alcohol) PHQ-2 Answer Date Recorded Total Score - Questions 1-9 0 0 08/2021 Comments No Sex and Gender Information Value Date Recorded Sex Assigned at Not on file Legal Sex Female 10:07 PM CDT Gender Identity Not on file Sexual Orientation Not on file COVID-19 Exposure Response Date Recorded In the last 10 days, have yo u been in contact with someone who was confirmed or suspected to have Coronavirus/COVID-19? No / Unsure 10/09/2022 1:32 AM CDT documented as of this encounter Miscellaneous Notes * Telephone Encounter - Lenka Smith RN - 10/25/2022 3:57 PM CDT levothyroxine (SYNTHROID) 125 MCG Tablet 90 Tablet 0 09/22/2022 Refill too soon. documented in this encounter Plan of Treatment Not on file documented as of this encounter Visit Diagnoses Diagnosis Hypothyroidism, unspecified type documented in this encounter Additional Health Concerns Assessment Noted Time PHQ-9 Depression Total Score: 0 01/21/20 1:00 PM CDT documented as of this encounter Care Teams Conversion Developer Relationship Specialty Start Date End Date Radha Landa MD [address] [place] [address] PCP - General Family Medicine 01/11/22 01/18/23 Provider, Unknown UNKNOWN PCP - General 01/19/23 documented as of this encounter
--- OUTSIDE RECORDS SUMMARY | 2024-12-10 14:45 | XMS_ITS | Encounter Summary ---
Author Organization [facility] Address [address] [place] [address] Phone Care Team Providers Care Writing Manager Name Role Phone Radha Landa MD Primary Care Provider Provider, Unknown Primary Care Provider Unavaila ble Encounter Details Date Type Department Care Team (Latest Contact Info) Description 11/12/2022 Transcribe Orders [facility] Pre[facility] [address] [place] [id number] Valerio Bautista MD Abnormal cardiovascular function study (Primary Dx); Dyspnea; Preprocedural cardiovascular examination Social History Tobacco Use Types Packs/Day Years Used Date Smoking Tobacco: Never Smokeless Tobacco: Never Alcohol Use Standard Drinks/Week Comments Yes 0 (1 standard drink = 0.6 oz pur e alcohol) rare glass of wine PHQ-2 Answer Date Recorded Total Score - Questions 1-9 0 10/0 08/2021 Comments No Sex and Gender Information Value Date Recorded Sex Assigned at Not on file Legal Sex Female 10:07 PM CDT Gender Identity Not on file Sexual Orientation Not on file COVID-19 Exposure Response Date Recorded In the last 10 days, have yo u been in contact with someone who was confirmed or suspected to have Coronavirus/COVID-19? No / Unsure 11/15/2022 10:21 AM CDT documented as of this encounter Plan of Treatment Not on file documented as of this encounter Results * PROTIME (PT) (PROTHROMBIN TIME) (11/15/2022 10:26 AM CDT) Pathologist [facility] [place] PROTIME-PATIENT 12.3 11.6 - 14.8 sec 11/15/2022 11:05 AM CDT [facility] INR 0.9 0.9 - 1.2 11/15/2022 11:05 AM CDT [facility] Comment: Therapeutic Ranges INR = 2.0-3.0: Venous thromb, atrial fib, pul embolism, tissue heart valve, ami. INR = 2.5-3.5: Mechanical heart valve Critical value for INR is >/= 4.5 Blood Venipuncture / Unknown 11/15/2022 10:26 AM CDT 11/15/2022 10:46 AM CDT Valerio Ramirez MD HEMATOLOGY ORDERABLES F inal Result [facility] [place] [address] * (ABNORMAL) BASIC METABOLIC PANEL W/ CALCIUM TOTAL (11/15/2022 10:26 AM CDT) [facility] SODIUM 143 136 - 144 mmol/L 11/15/2022 11:18 AM CDT [facility] POTASSIUM 4.2 3.5 - 5.1 mmol/L 11/15/2022 11:18 AM CDT [facility] CHLORIDE 107 100 - 110 mmol/L 11/15/2022 11:18 AM CDT [facility] CO2, VENOUS 25 22 - 32 mmol/L 11/15/2022 11:18 AM CDT [facility] ANION GAP 15.2 8.0 - 20.0 mmol/L 11/15/2022 11:18 AM CDT [facility] GLUCOSE 90 70 - 99 mg/dL 11/15/2022 11:18 AM CDT [facility] BUN 26(H) 8 - 23 mg/dL 11/15/2022 11:18 AM CDT [facility] CREATININE, BLOOD 1.07 0.60 - 1.10 mg/dL 11/15/2022 11:18 AM CDT [facility] BUN/CREATININE RATIO 24(H) 12 - 20 ratio 11/15/2022 11:18 AM CDT [facility] CALCIUM 9.5 8.7 - 10.5 mg/dL 11/15/2022 11:18 AM CDT [facility] IS THE PATIENT REQUIRED TO BE FASTING? No 11/15/2022 11:18 AM CDT [facility] GFR, ESTIMATED 55(L) >=60 11/15/2022 11:18 AM CDT [facility] Comment: Creatinine Clearance is the preferred criteria for selecting drug dose adjustments in renally impaired patients. The GFR is provided as additional pertinent clinical information. GFR is reported in mL/min/1.73 sq m. Calculation based on the Chronic Kidney Disease Epidemiology Collaboration (CKD- EPI) equation refit without adjustment for race. GFR, EST. >60 >=60 023 11:18 AM CDT [facility] GFR, EST. NONAFRICAN 50(L) >=60 11/15/2022 11:18 AM CDT [facility] Blood Venipuncture / Unknown 11/15/2022 10:26 AM CDT 11/15/2022 10:46 AM CDT Valerio Ramirez MD CHEMISTRY ORDERABLES Fi nal Result [facility] [place] [address] documented in this encounter Visit Diagnoses Diagnosis Abnormal cardiovascular function study- Primary Nonspecific abnormal unspecified cardiovascular function study Dyspnea Other dyspnea and respiratory abnormality Preprocedural cardiovascular examination Pre-operative cardiovascular examination documented in this encounter Additional Health Concerns Assessment Noted Time PHQ-9 Depression Total Score: 0 01/21/20 22 1:00 PM CDT documented as of this encounter Care Teams Writing Manager Relationship Specialty Start Date End Date Radha Landa MD [address] [place] [address] PCP - General Family Medicine 01/11/22 01/18/23 Provider, Unknown UNKNOWN PCP - General 01/19/23 documented as of this encounter
--- OUTSIDE RECORDS SUMMARY | 2024-12-10 14:45 | XMS_ITS | Encounter Summary ---
Author Organization [facility] Address [address] [place] [address] Phone Care Team Providers Care Statistical Assistant Name Role Phone Provider, Unknown Primary Care Provider Unavaila ble Reason for Visit * Reason Comments Medication Refill Encounter Details Date Type Department Care Team (Late st Contact Info) Description 12/01/2023 Refill [facility] - Primary Care - [facility] [address] [place] [id number] Radha Landa MD [address] [place] [address] Medication Refill Social History Tobacco Use Types [...] on file Sexual Orientation Not on file documented as of this encounter Miscellaneous Notes * Telephone Encounter - Tonio Randolph RN - 12/01/2023 8:53 AM CDT Patient no longer under provider care documented in this encounter Plan of Treatment Not on file documented as of this encounter Visit Diagnoses Diagnosis Peripheral vascular disease, unspecified (HCC) Peripheral vascular disease, unspecified documented in this encounter Additional Health Concerns Assessment Noted Time PHQ-9 Depression Total Score: 0 01/21/20 22 1:00 PM CDT documented as of this encounter Care Teams Statistical Assistant Relationship Specialty Start Date End Date Provider, Unknown UNKNOWN PCP - General 01/19/23 documented as of this encounter
--- OUTSIDE RECORDS SUMMARY | 2024-12-10 14:45 | XMS_ITS | Encounter Summary ---
Author Organization [facility] Healthcare Address [address] [place] [address] Care Team Providers Care Clinical Sociologist Name Role Phone Lucas Perez MD Unavailable [phone] Kaushik Ramirez DO Unavailable [phone] Shahram Barnard MD Unavailable [phone] Shahram Barnard MD Unavailable [phone] Eveline Villarreal MD Primary Care Provider [phone] No, Physician Primary Care Provider Radha Landa MD Primary Care Provider [phone] Sabrina Hatch DO Primary Care Provider + [phone] Aki Warner MD Primary Care Provider Kaushik Ramirez DO Unavailable [phone] Aki Warner MD Primary Care Provider Reason for Visit * Reason Onset Date Comments Scheduling Appointments 09/11/2021 Confirme d dexa - no calcium Encounter Details Date Type Department Care Team (Late st Contact Info) Description 09/11/2021 Telephone [facility] [address] [place] [address] Jennifer Cruz RT Scheduling Appointments (Confirmed dexa - no calcium ) Social History Tobacco Use Types Packs/Day Years Used Date Smoking Tobacco: Never Smokeless Tobacco: Never Alcohol Use Standard Drinks/Week Comments Yes 0 (1 standard drink = 0.6 oz pur e alcohol) occasional glass of wine AUDIT-C Answer Date Recorded Q1: How often do you have a drink containing alc ohol? Monthly or less 09/08/2021 Q2: How many drinks containi ng alcohol do you have on a typical day when you are drinking? 1 or 2 09/08/2021 Q3: How often do you have si x or more drinks on one occasion? Never 09/08/2021 PHQ-2 Answer Date Recorded PHQ-2 Total Score (If total score is 3 or more points, staff should administer the PHQ-9) 4 09/08/2021 PRAPARE - Transportation Answer Date Re corded In the past 12 months, has l ack of transportation kept you from medical appointments or from getting medications? No 05/19 In the past 12 months, has l ack of transportation kept you from meetings, work, or from getting things needed for daily living? 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 PROOFER APPRENTICE documented as of this encounter Care Teams Clinical Sociologist Relationship Specialty Start Date End Date Eveline Villarreal MD [address] [address] PCP - General Family Practice 09/08/21 10/03/22 No, Physician PCP - General 01/10/23 01/31/23 Radha Landa MD PCP - General Family Medicine 02/01/23 02/01/23 Sabrina Hatch DO [address] [facility] [address] [place] [address] PCP - General Family Medicine 02/02/23 02/21/23 Aki Warner MD [address] [address] PCP - General Family Medicine 02/22/23 09/24/24 Aki Warner MD [address] [facility] [address] [place] [address] PCP - General Family Medicine 09/25/24 Lucas Perez MD Surgeon Cardiothoracic Surgery 01/23/19 Kaushik Ramirez DO [address] [address] Referring Physician Cardiology 09/24/20 Shahram Barnard MD [address] [address] Anesthesiologist Anesthesiology 11/19/20 02/23/23 Shahram Barnard MD [address] [address] Anesthesiologist Anesthesiology 03/17/21 02/23/23 Kaushik Ramirze DO [address] [address] Referring Physician Cardiology 05/30/24 documented as of this encounter
--- OUTSIDE RECORDS SUMMARY | 2024-12-10 14:45 | XMS_ITS | Encounter Summary ---
Author Organization [facility] Healthcare Address [address] [place] [address] Care Team Providers Care Shredder Tender Peat Name Role Phone Lucas Perez MD Unavailable [phone] Kaushik Ramirez DO Unavailable [phone] Kaushik Ramirez DO Unavailable [phone] Aki Warner MD Primary Care Provider Encounter Details Date Type Department Care Team (Late st Contact Info) Description 11/02/2024 Results Follow-Up [facility] Primary Care at [address] [address] Aki Warner MD [address] [place] [address] [address] [place] [address] EMG/NCV - Social History Tobacco Use Types Packs/Day Years Used Date Smoking Tobacco: Never Passive Smoke Exposure: Never Smokeless Tobacco: Never Alcohol Use Standard [...] on file 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 * Result Encounter Note - Aki Warner MD - 11/02/2024 5:32 AM CDT The nerve conduction studies confirm carpal tunnel syndrome as well as cubital tunnel syndrome in the left wrist and elbow. This will be useful for the hand surgeon that are referred you to and that you have an appointment for on 12/28/2024 to review. documented in this encounter Plan of Treatment Not on file documented as of this encounter Visit Diagnoses Diagnosis Carpal tunnel syndrome of left wrist- Primary Cubital tunnel syndrome on left documented in this encounter Care Teams Shredder Tender Peat Relationship Specialty Start Date End Date Aki Warner MD [address] [address] PCP - General Family Medicine 09/25/24 Lucas Perez MD Surgeon Cardiothoracic Surgery 01/23/19 Kaushik Ramirez DO [address] [address] Referring Physician Cardiology 09/24/20 Kaushik Ramirez DO [address] [facility] [address] [place] [address] Referring Physician Cardiology 05/30/24 documented as of this encounter
--- OUTSIDE RECORDS SUMMARY | 2024-12-10 14:45 | XMS_ITS | Encounter Summary ---
Author Organization [facility] Healthcare Address [address] [place] [address] Care Team Providers Care Mimeographer Name Role Phone Ramona Myers MD Unavailable [phone] Ramona Myers MD Primary Care Provider + [phone] Richy Bentley MD Primary Care Provider + [phone] Sabrina Hatch DO Primary Care Provider + [phone] Lucas Perez MD Unavailable [phone] Purvi Lam MD Unavailable [phone] Nikki George MA Unavailable Kaushik Ramirez DO Unavailable [phone] Shahram Barnard MD Unavailable [phone] Shahram Barnard MD Unavailable [phone] Eveline Villarreal MD Primary Care Provider + [phone] No, Physician Primary Care Provider [phone] Radha Landa MD Primary Care Provider [phone] Sabrina Hatch DO Primary Care Provider + [phone] Aki Warner MD Primary Care Provider Kaushik Ramirez DO Unavailable [phone] Aki Warner MD Primary Care Provider Encounter Details Date Type Department Care Team (Late st Contact Info) Description 08/15/2017 Orders Only [facility] Health Information Management [address] [place] [address] Scanning, Provider Social History Tobacco Use Types Packs/Day Years Used Date Smoking Tobacco: Never Alcohol Use Standard Drinks/Week Comments Yes 0 (1 standard drink = 0.6 oz pur e alcohol) Comments Unknown Sex and Gender Information Value Date Recorded Sex Assigned at Not on file 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 Gender Identity Not on file Sexual Orientation Not on file documented as of this encounter Plan of Treatment Not on file documented as of this encounter Procedures Procedure Name Priority Date/Time Associated Diagnosis Comments SCAN - LABS 08/15/2017 CARDIOLOGY DOCUMENT SCAN 08/15/2017 documented in this encounter Results * SCAN - LABS (08/15/2017) us Provider Scanning Final Result * Cardiology Document Scan (08/15/2017) Anatomical Region Laterality Modality Other us Provider Scanning CV CARDIAC SERVICES PROCEDURES Final Result documented in this encounter Visit Diagnoses Not on filedocumented in this encounter Additional Health Concerns Infection Onset Date Last Indicated Resolved Time COVID: Suspected 06/02/2023 06/02/2023 06/02/2023 11:22 AM ELECTRONIC SALES AND SERVICE TECHNICIAN documented as of this encounter Care Teams Mimeographer Relationship Specialty Start Date End Date Ramona Myers MD PCP - General 11/17/16 11/09/17 Richy Bentley MD [address] [place] [address] PCP - General Family Practice 11/10/17 01/22/19 Sabrina Hatch DO [address] [place] [address] PCP - General Family Medicine 01/23/19 09/07/21 Eveline Villarreal MD [address] [facility] [address] [place] [address] PCP - General Family Practice 09/08/21 10/03/22 No, Physician PCP - General 01/10/23 01/31/23 Radha Lnada MD PCP - General Family Medicine 02/01/23 02/01/23 Sabrina Hatch DO [address] [facility] [address] [place] [address] PCP - General Family Medicine 02/02/23 02/21/23 Aki Warner MD [address] [place] [address] [address] [place] [address] PCP - General Family Medicine 02/22/23 09/24/24 Aki Warner MD [address] [place] [address] [address] [place], [place] [id number] PCP - General Family Medicine 09/25/24 Ramona Myers MD 07/08/16 09/23/20 Lucas Perez MD [address] [place] [address] Surgeon Cardiothoracic Surgery 01/23/19 Purvi Lam MD [address] [place] [address] Consulting Physician Gastroenterology 05/08/19 1 Nikki George MA [address] [place] [address] [address] [place] [address] ACO Care Regenerator Operator 05/30/20 06/01/20 Kaushik Ramirez DO [address] [facility] [address] [place] [address] Referring Physician Cardiology 09/24/20 Shahram Barnard MD [address] [address] Anesthesiologist Anesthesiology 11/19/20 02/23/23 Shahram Barnard MD [address] [address] Anesthesiologist Anesthesiology 03/17/21 02/23/23 Kaushik Ramirez DO [address] [address] Referring Physician Cardiology 05/30/24 documented as of this encounter
--- OUTSIDE RECORDS SUMMARY | 2024-12-10 14:45 | XMS_ITS | Clinical Summary ---
Author Organization [facility] Address [address] [place] [address] Phone Care Team Providers Care Cytotechnologist/Cytology Supervisor Name Role Phone Provider, Unknown Primary Care Provider Unavaila ble Allergies No known active allergies Medications losartan (COZAAR) 50 MG TabletIndication s:Hypertension, unspecified type Take 50 mg by mouth every morning. 2 Active amLODIPine (NORVASC) 10 MG TabletIndication s:Hypertension, unspecified type Take 10 mg by mouth nightly. 2 Active aspirin EC 81 MG Tablet Delayed ResponseIndicati ons:Hypertension , unspecified type,S/P placement of cardiac pacemaker Take 81 mg by mouth. 1 Active Cholecalciferol 25 mcg Capsule Take 1,000 Units by mouth. Active hydroCHLOROthiaz jasen (MICROZIDE) 12.5 MG CapsuleIndicatio ns:Bilateral leg edema Take 1 Capsule by mouth daily. 90 Capsule 3 2 Active [place]-3 Fatty Acids (fish oil) 1200 MG Capsule Take 1,200 mg by mouth daily. Active carvedilol (COREG) 12.5 MG TabletIndication s:Hypertension, unspecified type Take 0.5 Tablets by mouth 2 times daily. 180 Tablet 1 3 Active levothyroxine (SYNTHROID) 112 MCG TabletIndication s:Hypothyroidism , unspecified type Take 1 Tablet by mouth daily. 90 Tablet 3 3 Active Additional Information Patient taking differently:112 mcg OralEVERY MORNING, Reported on 11/15/2022 citalopram (CeleXA) 10 MG TabletIndication s:Depression, unspecified depression type Take 1 Tablet by mouth daily. 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 180 Tablet 3 3 Active Additional Information Patient not taking.Reported on 11/30/2022 cilostazol (PLETAL) 50 MG Tablet Take 100 mg by mouth 2 times daily. Active Active Problems No known active problems Immunizations Immunization Administration Dates Next Due Influenza Vaccine 12/17/2014 Influenza Vaccine, Quadrivalent, PF 01/20/2022 Influenza Vaccine,unspecified Formulation 2018 Influenza, High-dose, Quadrivalent 03/17/2021, Pneumococcal Vaccine - 13 Valent 01/23/2019 Pneumococcal Vaccine Adult - 23 Valent 7,04/18/2015 TDAP Vaccine 02/25/2016 Zoster Vaccine Recombinant 04/26/2022,01/29/2022 Family History Medical History Relation Name Comments Alzheimer's Disease Father Heart Attack Mother Relation Name Status Comments Father Mother Social History Tobacco Use Types Packs/Day Years Used Date Smoking Tobacco: Never Smokeless Tobacco: Never Tobacco Cessation:Counseling Given: Not Answered Alcohol Use Standard Drinks/Week Comments Yes 0 [...] Sign Reading Time Taken Comments Blood Pressure 160/74 12/13/2022 8:07 AM CDT Pulse 60 12/13/2022 8:07 AM CDT Temperature 36.4 C (97.6 F) 12/13/2022 8:07 AM CDT Respiratory Rate 16 12/13/2022 8:07 AM CDT Oxygen Saturation 94% 12/13/2022 8:07 AM CDT Inhaled Oxygen Concentration - - Weight 86.2 kg (190 lb) 11/30/2022 3:18 PM CDT Height 165.1 cm (5' 5) 11/30/2022 3:18 PM CDT Body Mass Index 31.62 11/30/2022 3:18 PM CDT Plan of Treatment Health Maintenance Due Date Last Done Comments DEXA Bone Density 1950 Hepatitis C Virus (HCV) Screening 1950 Respiratory Syncytial Virus (RSV) Immunization (Adult) (1 - 1-dose 75+ series) 02/19/2023 SARS-COV-2 Immunization ( season) 2023 08/10/2020, 07/15/2020 Influenza Immunization (#1) 12/17/202408/2021, 03/17/2021, 03/03/2020, Additional history exists Td Immunization Every 10 Years (Adults With 1 Tdap) 02/24/2026 02/25/2016 DTaP/Tdap/Td Immunization Discontinued 02/25/2016 Pneumococcal Immunization (50+ years) Completed 01/23/2019, 04/18/2016, 04/18/2015 Zoster Immunization Discontinued 04/26/2022, 2 Colonoscopy Discontinued 08/17/2022 Colorectal Cancer Screening Discontinued Cologuard Discontinued Hepatitis B Immunization Discontinued Human Papillomavirus (HPV) Immunization Aged Out No longer eligible based on patient's age to complete this topic Immunochemical Fecal Occult Blood Discontinued Meningococcal Immunization (ACWY) Aged Out No longer eligible based on patient's age to complete this topic Rotavirus Immunization Aged Out No lo nger eligible based on patient's age to complete this topic Medical Devices Implanted Type Area Handle Bender Device Identifier Shelf Expiration Date Model / Serial / Lot System Coronary Stent Xience Skypoint Everolimus Eluting 3.00 Mm X 12 Mm / Rapid-Exchange - [id number] Implanted:Qty: 1 on 11/25/2022 by Valerio Bautista MD at [facility] IMPLANT [employer] [id number] 10/20/2023 [id number] Device Clsr 6-7fr Mynxgrip Electronics Detail Draftsperson Vasc Bln Cath Lock Syr Integrate Sealant 10ml Lf Disp - [id number] Implanted:Qty: 1 on 11/25/2022 by Valerio Bautista MD at [facility] IMPLANT [employer] [id number] / / [id number] Technis 1-Piece Iol With Simplicity Delivery System Implanted:Qty: 1 on 11/08/2022 by Armando Celestin MD at [facility] Left: Eye 09/07/2025 [id number] / [id number] / [id number] Technis 1 -Piece Iol With Simplicity Delivery System Implanted:Qty: 1 on 12/13/2022 by Armando Celestin MD at [facility] Right: Eye 10/08/2025 [id number] / [id number] / [id number] Procedures Procedure Name Priority Date/Time Associated Diagnosis Comments COLONOSCOPY 08/17/2022 12:00 AM CDT from Last 3 Months or Most Recently Relevant to Health Maintenance Results * HM COLONOSCOPY (08/17/2022 12:00 AM CDT) 08/17/2022 us Provider Scan PROCEDURE/MINOR SURGICAL ORDERAB LES Final Result SCAN from Last 3 Months or Most Recently Relevant to Health Maintenance Insurance MEDICARE C [employer] Care Teams Cytotechnologist/Cytology Supervisor Relationship Specialty Start Date End Date Provider, Unknown UNKNOWN PCP - General 01/19/23
--- OUTSIDE RECORDS SUMMARY | 2024-12-10 14:45 | XMS_ITS | Encounter Summary ---
Author Organization [facility] Address [address] [place] [address] Phone Care Team Providers Care Behavioral Health Clinician Name Role Phone Radha Landa MD Primary Care Provider [phone] Provider, Unknown Primary Care Provider Unavaila ble Reason for Visit * Reason Comments Medication Refill Encounter Details Date Type Department Care Team (Late st Contact Info) Description 10/26/2022 Refill [facility] - Primary Care - [place] [address] [place] [address] Radha Landa MD [address] [place] [address] Medication Refill Social History Tobacco Use Types Packs/Day Years Used Date Smoking Tobacco: Never Smokeless Tobacco: Never Alcohol Use Standard Drinks/Week Comments Yes 0 (1 standard drink = 0.6 oz pur e alcohol) PHQ-2 Answer Date Recorded Total Score - Questions 1-9 0 100 08/2021 Comments No Sex and Gender Information [...] Telephone Encounter - Lenka Smith RN - 10/26/2022 1:15 PM CDT hydroCHLOROthiazide (MICROZIDE) 12.5 MG Capsule 90 Capsule 3 01/20/2022 Refill too soon documented in this encounter Plan of Treatment Not on file documented as of this encounter Visit Diagnoses Diagnosis Bilateral leg edema Edema documented in this encounter Additional Health Concerns Assessment Noted Time PHQ-9 Depression Total Score: 0 01/21/20 1:00 PM CDT documented as of this encounter Care Teams Behavioral Health Clinician Relationship Specialty Start Date End Date Radha Landa MD [address] [place] [address] PCP - General Family Medicine 01/11/22 01/18/23 Provider, Unknown UNKNOWN PCP - General 01/19/23 documented as of this encounter
[2024-12-10 15:35] LABS: Alanine Aminotransferase 12 U/L (6-35); Albumin Level 4.5 g/dL (3.5-5.1); Alkaline Phosphatase 68 U/L (38-126); Anion Gap 5 mmol/L (4-12); Aspartate Amino Transferase 22 U/L (14-36); Bilirubin,Total 0.5 mg/dL (0.2-1.3); Blood Urea Nitrogen 25 mg/dL (7-17); Calcium 9.9 mg/dL (8.4-10.2); Carbon Dioxide 28 mmol/L (22-30); Chloride 108 mmol/L (98-107); Cholesterol 219 mg/dL (0-200); Estimated Glomerular Filt Rate 43; Glucose 99 mg/dL (65-110); HDL Direct 48 mg/dL; Magnesium 2.4 mg/dL (1.6-2.3); Osmolality Calculated 296 mOsm/kg (285-295); Potassium 4.8 mmol/L (3.4-5.0); Sodium 141 mmol/L (137-145); Total Protein 7.1 g/dL (6.3-8.2); Triglycerides 158 mg/dL (<150)
== END 2024-12-10 14:33 | disposition home or self-care (01) ==
LOC: CHSLAB 14:35
PROVIDERS: PCP Family Medicine; Visit Provider Internal Medicine Cardiovascular Disease
DX: E78.5 Hyperlipidemia, unspecified (principal)
CPT/HCPCS: 36415; 80053; 80061; 83735